=== PATIENT | female | born 1990 | race Caucasian/White ===

== ENCOUNTER 2017-09-12 15:35 | Emergency (ER) | payer MEDICARE, MEDICAID ==
[~2017-09-12] VITALS: Ht 160 cm; Wt 131.5 kg
[2017-09-12] MEDS ORDERED: PREDNISONE 10 M10 MG PO (15:46)
[2017-09-12] MEDS ORDERED: PREDNISONE50 MG PO (16:21)
[2017-09-12] MEDS ORDERED: IBUPROFEN 800800 MG PO (16:21)
[2017-09-12] MEDS ORDERED: PROAIR HFA8.5 GM PO (16:21)
[2017-09-12] MEDS ORDERED: ALBUTEROL2.5 MG/3 M INH (16:53)
[2017-09-12] MEDS ORDERED: NEBULIZER MISCELL (16:53)
[2017-09-12 17:18] VITALS: BP 135/88
--- NOTE | 2017-09-13 19:31 | EKG ---
[place] [address] ELECTROCARDIOGRAM REPORT Name: SALAS KELLY Room: [facility]#: [id number] Admission: 09/12/17 Attend Phys: Discharge: 09/12/17 Date of : [birth year] Report #: [id number] THIS REPORT FOR: //name// [facility] ED Test Date: 2017-09-12 Test Time: 15:42:33 Pat Name: SALAS KELLY Department: Room: Gender: F Progressive Care Unit Registered Nurse: ADAM : 1990 Requested By: Angeli Robertson Order Number: [id number] Laura MD: Bijan Guillory Measurements Intervals [place] Rate: 102 P: 58 [place]: 143 QRS: 11 QRSD: 92 T: 6 QT: 343 QTc: 447 Interpretive Statements Sinus tachycardia Artifact in lead(s) I,II,III,aVR,aVL,aVF,V1 No previous ECG available for comparison Electronically Signed On 09-13-2017 19:31:00 CDT by Bijan Guillory [email or web address] <ELECTRONICALLY SIGNED> By: Bijan Guillory MD, [facility] 09/13/17 193 [id number] 154 Bijan Guillory MD, FACC /EPI
== END 2017-09-12 17:18 | disposition home or self-care (01) ==
LOC: M.ERS 15:35
DX: J45.901 Unspecified asthma with (acute) exacerbation (principal); R07.81 Pleurodynia; Z88.8 Allergy status to other drugs, medicaments and biological substances

== ENCOUNTER 2017-10-06 22:05 | Observation (INO) | payer MEDICARE, MEDICAID ==
[~2017-10-06] VITALS: Ht 160 cm; Wt 139.3 kg
[~2017-10-06 22:05] MED LIST: ALBUTEROL2.5 MG/3 M INH; IBUPROFEN 800800 MG PO; NEBULIZER MISCELL; PREDNISONE 10 M10 MG PO; PREDNISONE50 MG PO; PROAIR HFA8.5 GM PO
[2017-10-06 22:07] VITALS: BP 134/85
[2017-10-06] MEDS ORDERED: LAMICTAL100 MG PO (22:14)
[2017-10-06] MEDS ORDERED: SERTRALINE HCL50 MG PO (22:15)
[2017-10-06] MEDS ORDERED: WELLBUTRIN SR150 MG PO (22:15)
[2017-10-06] MEDS ORDERED: ABILIFY20 MG PO (22:16)
[2017-10-06 22:38] LABS: ABSOLUTE BASOPHILS 0.1 thou/uL (0.0-0.2); ABSOLUTE EOSINOPHILS 0.5 thou/uL (0.0-0.7); ABSOLUTE LYMPHOCYTES 2.4 thou/uL (0.8-5.3); ABSOLUTE NEUTROPHILS 9.5 thou/uL (1.6-8.1); BASOPHILS 0.5 %; HEMATOCRIT 37.2 % (37.0-47.0); HEMOGLOBIN 11.9 gm/dL (12.0-15.0); LYMPHOCYTES 17.7 %; MCH 28.9 pg (26.0-34.0); MCV 90.2 fL (80.0-100.0); MONOCYTES 7.3 %; MPV 7.5 fl. (7.2-11.1); NUCLEATED RBCS 0 /100WBC; PLATELET COUNT* 333 thou/uL (150-400); POLYS 70.5 %; RBC 4.13 mil/uL (4.20-5.00); RDW-CV 15.7 % (10.5-14.5); WBC 13.5 thou/uL (4.0-11.0)
[2017-10-06 22:42] LABS: ANION GAP 6 mmol/L (7-16); BUN 12 mg/dL (7-18); CALCIUM 8.6 mg/dL (8.5-10.1); CHLORIDE 105 mmol/L (98-107); CO2 30 mmol/L (21-32); CREATININE 0.7 mg/dL (0.6-1.3); GLUCOSE 96 mg/dL (70-99); POTASSIUM 3.8 mmol/L (3.5-5.1); SODIUM 141 mmol/L (136-145)
[2017-10-06 22:49] LABS: ALKALINE PHOSPHATASE 70 U/L (46-116); SGOT 13 U/L (15-37); SGPT 20 U/L (30-65); TOTAL BILIRUBIN 0.2 mg/dL (<0.1-1.0); TOTAL PROTEIN 7.2 g/dL (6.4-8.2); TROPONIN-I LEVEL <0.06 ng/mL (<0.06)
[2017-10-06 23:14] LABS: APTT 26.1 Seconds (25.0-31.3); PROTIME 9.4 Seconds (9.20-11.50)
[2017-10-07 00:03] LABS: URINE BILIRUBIN NEGATIVE (Negative); URINE BLOOD NEGATIVE (Negative); URINE CLARITY CLEAR; URINE COLOR YELLOW; URINE GLUCOSE-RANDOM NEGATIVE (Negative); URINE KETONES NEGATIVE (Negative); URINE LEUKOCYTES-REFLEX NEGATIVE (Negative); URINE NITRITE-REFLEX NEGATIVE (Negative); URINE PROTEIN NEGATIVE (Negative); URINE SPECIFIC GRAVITY 1.025 (1.005-1.030); URINE UROBILINOGEN 0.2 E.U./dl (0.2-1.0)
[2017-10-07 00:13] LABS: AMP/METHAMP Negative (Negative); BARBITURATES Negative (Negative); BENZODIAZEPINES Negative (Negative); COCAINE Negative (Negative); METHADONE Negative (Negative); OPIATES Negative (Negative); PCP Negative (Negative); THC Negative (Negative)
[2017-10-07 02:15] VITALS: BP 114/67
[2017-10-07 02:47] VITALS: BP 129/74
[2017-10-07 07:50] VITALS: BP 127/72
--- NOTE | 2017-10-07 11:02 | EKG ---
[place] [address] ELECTROCARDIOGRAM REPORT Name: SALAS KELLY Room: [place] [address] ADM IN [facility].#: [id number] Admission: 10/07/17 Attend Phys: Kamran Forbes MD Discharge: Date of : [birth year] Report #: [id number] THIS REPORT FOR: //name// [facility] ED Test Date: 2017-10-06 Test Time: 22:13:14 Pat Name: SALAS KELLY Department: Room: [facility] Gender: F Engineering Scientist: TITO : 1990 Requested By: Angeli Robertson Order Number: [id number] MD: Kevin Lorenzo Measurements Intervals [place] Rate: 120 P: 67 [place]: 144 QRS: 17 QRSD: 124 T: 3 QT: 304 QTc: 430 Interpretive Statements Sinus tachycardia nonspecific t wave changes Artifact in lead(s) I,II,III,aVR,aVL,aVF,V2,V4,V5,V6 Compared to ECG 09/12/2017 15:42:33 rate increased Electronically Signed On 10-07-2017 11:02:15 CDT by Kevin Lorenzo [email or web address] <ELECTRONICALLY SIGNED> By: Kevin Lorenzo MD, FACC 10/07/17 1102 2213 2213 Kevin Lorenzo MD, FAC /EPI
[2017-10-07] MEDS ORDERED: PREDNISONE 10 M10 MG PO (13:33)
[2017-10-07] MEDS ORDERED: LIDODERM1 EACH TRANSDERM (13:34)
[2017-10-07 14:13] VITALS: BP 127/72
== END 2017-10-07 14:50 | disposition home or self-care (01) ==
LOC: M.ERS 22:05 → M.2W 10-07 01:48 → M.TBA-ER 10-07 01:48 → M.2W 10-07 02:31
PROVIDERS: Personal Emergency Response Attendant; ADMIT Internal Medicine
DX: J45.901 Unspecified asthma with (acute) exacerbation (principal); R07.89 Other chest pain; E66.9 Obesity, unspecified; Z68.43 Body mass index [BMI] 50.0-59.9, adult; F17.210 Nicotine dependence, cigarettes, uncomplicated; Z79.899 Other long term (current) drug therapy

== ENCOUNTER 2017-11-04 13:49 | Inpatient (IN) | payer MEDICARE, MEDICAID ==
[~2017-11-04] VITALS: Ht 162.6 cm; Wt 137.0 kg
[~2017-11-04 13:49] MED LIST changes: +ABILIFY20 MG PO; +LAMICTAL100 MG PO; +LIDODERM1 EACH TRANSDERM; +SERTRALINE HCL50 MG PO; +WELLBUTRIN SR150 MG PO
[2017-11-04 13:57] VITALS: BP 152/103
[2017-11-04 14:36] LABS: ABSOLUTE BASOPHILS 0.1 thou/uL (0.0-0.2); ABSOLUTE EOSINOPHILS 0.5 thou/uL (0.0-0.7); ABSOLUTE LYMPHOCYTES 1.4 thou/uL (0.8-5.3); ABSOLUTE MONOCYTES 0.8 thou/uL (0.0-1.2); ABSOLUTE NEUTROPHILS 6.2 thou/uL (1.6-8.1); EOSINOPHILS 5.9 %; HEMOGLOBIN 12.4 gm/dL (12.0-15.0); LYMPHOCYTES 15.1 %; MCH 29.4 pg (26.0-34.0); MCHC 32.5 g/dL (28.0-37.0); MCV 90.4 fL (80.0-100.0); MONOCYTES 9.4 %; MPV 7.3 fl. (7.2-11.1); NUCLEATED RBCS 0 /100WBC; PLATELET COUNT* 282 thou/uL (150-400); POLYS 68.6 %; RBC 4.21 mil/uL (4.20-5.00); RDW-CV 15.9 % (10.5-14.5); WBC 9.1 thou/uL (4.0-11.0)
[2017-11-04 14:40] LABS: CALCIUM 8.1 mg/dL (8.5-10.1); CREATININE 0.8 mg/dL (0.6-1.3); POTASSIUM 3.6 mmol/L (3.5-5.1)
[2017-11-04 14:46] LABS: TOTAL BILIRUBIN 0.2 mg/dL (<0.1-1.0)
[2017-11-04 18:15] LABS: BE -0.1 mmol/L (-2 to +3); HCO3 24.7 mmol/L (22.0-26.0); PO2 73.4 mmHg (75.0-100.0); pH 7.398 (7.340-7.450)
[2017-11-04 18:42] VITALS: BP 125/76
[2017-11-04 20:00] VITALS: BP 149/81
[2017-11-05 08:10] VITALS: BP 145/97
[2017-11-05 08:16] LABS: URINE BILIRUBIN NEGATIVE (Negative); URINE BLOOD NEGATIVE (Negative); URINE CLARITY CLEAR; URINE COLOR YELLOW; URINE GLUCOSE-RANDOM NEGATIVE (Negative); URINE KETONES NEGATIVE (Negative); URINE LEUKOCYTES-REFLEX NEGATIVE (Negative); URINE NITRITE-REFLEX NEGATIVE (Negative); URINE PROTEIN NEGATIVE (Negative)
[2017-11-05 08:23] LABS: AMP/METHAMP Negative (Negative); BARBITURATES Negative (Negative); BENZODIAZEPINES Negative (Negative); COCAINE Negative (Negative); METHADONE Negative (Negative); OPIATES Negative (Negative); PCP Negative (Negative); THC Negative (Negative)
[2017-11-05 09:28] LABS: HEMATOCRIT 39.5 % (37.0-47.0); HEMOGLOBIN 12.7 gm/dL (12.0-15.0); MCH 28.9 pg (26.0-34.0); MCV 90.2 fL (80.0-100.0); MPV 7.6 fl. (7.2-11.1); NUCLEATED RBCS 0 /100WBC; PLATELET COUNT* 314 thou/uL (150-400); RBC 4.38 mil/uL (4.20-5.00); RDW-CV 15.3 % (10.5-14.5); WBC 9.1 thou/uL (4.0-11.0)
[2017-11-05 09:33] LABS: CALCIUM 8.7 mg/dL (8.5-10.1); CREATININE 0.7 mg/dL (0.6-1.3)
[2017-11-05 09:38] LABS: ALBUMIN 3.1 g/dL (3.4-5.0); MAGNESIUM 1.8 mg/dL (1.8-2.4); PHOSPHORUS* 2.7 mg/dL (2.5-4.9); TOTAL BILIRUBIN 0.3 mg/dL (<0.1-1.0); TOTAL PROTEIN 7.6 g/dL (6.4-8.2)
[2017-11-05 09:53] LABS: ABSOLUTE EOSINOPHILS 0.1 thou/uL (0.0-0.7); ABSOLUTE LYMPHOCYTES 0.2 thou/uL (0.8-5.3); ABSOLUTE NEUTROPHILS 8.8 thou/uL (1.6-8.1); PLATELET ESTIMATE ADEQUATE
--- NOTE | 2017-11-05 10:52 | EKG ---
[place] [address] ELECTROCARDIOGRAM REPORT Name: SALAS KELLY Room: [address] ADM IN [facility]#: [id number] Admission: 11/04/17 Attend Phys: Donald Cheek MD Discharge: Date of : [birth year] Report #: [id number] THIS REPORT FOR: //name// [facility] ED Test Date: 2017-11-04 Test Time: 14:27:35 Pat Name: SALAS KELLY Department: Room: [facility] Gender: Dumper: Nishant PEÑALOZA : 1990 Requested By: Anneliese Osborn Order Number: [id number] MD: Kevin Lorenzo Measurements Intervals [place] Rate: 104 P: 63 [place]: 142 QRS: 25 QRSD: 80 T: 5 QT: 332 QTc: 437 Interpretive Statements Sinus tachycardia Compared to ECG 10/06/2017 22:13:14 T-wave abnormality no longer present Electronically Signed On 11-05-2017 10:52:42 CDT by Kevin Lorenzo [email or web address] <ELECTRONICALLY SIGNED> By: Kevin Lorenzo MD, [facility] 11/05/17 1052 1427 1427 Kevin Lorenzo MD, [facility] /EPI
[2017-11-05 16:47] VITALS: BP 141/89
[2017-11-05 20:00] VITALS: BP 138/92
[2017-11-06 04:56] VITALS: BP 130/79
[2017-11-06 13:06] VITALS: BP 152/94
[2017-11-06 13:45] LABS: ABSOLUTE LYMPHOCYTES 1.5 thou/uL (0.8-5.3); ABSOLUTE MONOCYTES 0.9 thou/uL (0.0-1.2); ABSOLUTE NEUTROPHILS 11.7 thou/uL (1.6-8.1); BASOPHILS 0.3 %; HEMATOCRIT 38.7 % (37.0-47.0); LYMPHOCYTES 10.4 %; MCH 28.3 pg (26.0-34.0); MCV 91.5 fL (80.0-100.0); MONOCYTES 6.2 %; NUCLEATED RBCS 0 /100WBC; PLATELET COUNT* 334 thou/uL (150-400); POLYS 83.1 %; RBC 4.23 mil/uL (4.20-5.00); RDW-CV 15.6 % (10.5-14.5); WBC 14.1 thou/uL (4.0-11.0)
[2017-11-06 13:52] LABS: CALCIUM 8.6 mg/dL (8.5-10.1); CREATININE 0.6 mg/dL (0.6-1.3); POTASSIUM 4.6 mmol/L (3.5-5.1)
[2017-11-06 13:54] LABS: ALBUMIN 3.2 g/dL (3.4-5.0); TOTAL BILIRUBIN 0.1 mg/dL (<0.1-1.0); TOTAL PROTEIN 6.8 g/dL (6.4-8.2)
--- NOTE | 2017-11-06 14:15 | CON ---
[facility] [address] [place] [address] CONSULTATION Name: SALAS KELLY Room: [address] IN [facility]#: [id number] Admission: 11/04/17 Attend Phys: Donald Cheek MD Discharge: Date of : [birth year] Report #: [id number] THIS REPORT FOR: //name// CC: Donald Salas DATE OF SERVICE: 11/05/2017 PULMONARY CONSULTATION REFERRING PHYSICIAN: Donald Cheek M.D. CHIEF COMPLAINT: Asthma. HISTORY OF PRESENT ILLNESS: The patient is a 27-year-old female who has a history of bronchial asthma that she has had since a child. She has not been on very good medical regimen by her history, using only an albuterol inhaler as needed. The patient states she wheezes all the time. It was not until this past Wednesday that she began to have more problems with shortness of breath and wheezing. She has developed some chest tightness and pain as well. She is not coughing up any phlegm at this time. She denies fever, chills, nausea, vomiting or abdominal pain. The patient is living in [place] with her boyfriend. Normally, her place of residence has been in [place], [place]. PAST MEDICAL HISTORY: Significant for bipolar disorder. She has a history of chronic depression. She has a history of asthma. ALLERGIES: COMPAZINE. SOCIAL HISTORY: She lives with her boyfriend. She is a pack-a-day smoker. FAMILY HISTORY: Father of respiratory problems who had a tracheostomy. Mother is alive. She has a sister that is in good health. REVIEW OF SYSTEMS: System review negative other than what is outlined above. MEDICATIONS: On an outpatient basis has been albuterol, Wellbutrin, Zoloft and Lamictal, also Abilify. PHYSICAL EXAMINATION: VITAL SIGNS: Blood pressure 145/97, respiratory rate 20, pulse rate 107, temperature 98.1 degrees. Her weight is 302 pounds. GENERAL APPEARANCE: She is awake, alert, oriented. [place] [address] CONSULTATION Name: SALAS KELLY Room: [address]#: [id number] Admission: 11/04/17 Attend Phys: Donald Cheek MD Discharge: Date of : [birth year] Report #: [id number] respiratory distress at this time. She is not on oxygen therapy at home. HEAD: Atraumatic. EYES: Pupils are round, equal, reactive. Sclerae and conjunctivae clear. ORAL CAVITY: Moist. No lesions. NECK: No adenopathy. CHEST: Scattered wheezes throughout all lung hahn. CARDIOVASCULAR: Regular rhythm. ABDOMEN: Obese. EXTREMITIES: Negative for edema. No evidence of clubbing. SKIN: Warm and dry without rash. LYMPHATICS: Negative. Pulses equal bilaterally. NEUROLOGIC: Moves all 4 extremities. No lateralizing signs. MEDICAL IMAGING STUDIES: Chest x-ray is negative. LABORATORY DATA: Electrolytes reveal sodium 136, potassium 4.0, chloride 99, CO2 of 28, BUN of 10, creatinine 0.7, EGFR of 100. Drug screen is negative. Hemoglobin and hematocrit are 12.7 and 39.5 with a white count of 9100 and 1% eosinophils. Arterial blood gas on 2 liters, pH 7.39, pCO2 of 41, pO2 of 73, bicarbonate 25 on 2 liters. ASSESSMENT: 1. Exacerbation of bronchial asthma. 2. Bipolar disease. 3. Obesity. RECOMMENDATION: The patient will need to be placed on a better maintenance therapy while as an outpatient. Hopefully, this will better control her asthma condition. In addition, she will need to discontinue smoking. This was emphasized during the evaluation. She will need to have a nebulizer at home. We will continue with the current medical regimen. She is on steroids. We will add budesonide and formoterol as well as Singulair. IgE level will be obtained as well. <ELECTRONICALLY SIGNED> By: Lux Chau MD 11/06/17 1415 1133 1838Allinus Chau MD /nt
[2017-11-06 16:00] VITALS: BP 138/83
[2017-11-06 19:40] VITALS: BP 133/81
[2017-11-07 08:41] VITALS: BP 134/72
[2017-11-07 16:33] VITALS: BP 128/73
--- NOTE | 2017-11-07 17:06 | EKG ---
[place] [address] ELECTROCARDIOGRAM REPORT Name: SALAS KELLY Room: [address] ADM IN [facility].#: [id number] Admission: 11/04/17 Attend Phys: Donald Cheek MD Discharge: Date of : [birth year] Report #: [id number] THIS REPORT FOR: //name// [facility] Test Date: 2017-11-07 Test Time: 10:19:33 Pat Name: SALAS KELLY Department: Room: [address] Gender: F Product Representative: : 1990 Requested By: Micheal May Order Number: [id number] Laura MD: Bijan Guillory Measurements Intervals [place] Rate: 98 P: 48 PA: 129 QRS: 9 QRSD: 81 T: 3 QT: 356 QTc: 455 Interpretive Statements Sinus rhythm Compared to ECG 11/04/2017 14:27:35 Sinus tachycardia no longer present Electronically Signed On 11-07-2017 17:05:55 CDT by Bijan Guillory [email or web address] <ELECTRONICALLY SIGNED> By: Bijan Guillory MD, [facility] 11/07/17 1705 1019 1019 Bijan Guillory MD, FACC /EPI
[2017-11-07 19:40] VITALS: BP 130/87
[2017-11-08 05:00] LABS: HEMATOCRIT 37.7 % (37.0-47.0); HEMOGLOBIN 11.9 gm/dL (12.0-15.0); MCH 28.8 pg (26.0-34.0); MCHC 31.6 g/dL (28.0-37.0); MCV 91.1 fL (80.0-100.0); MPV 7.8 fl. (7.2-11.1); RBC 4.13 mil/uL (4.20-5.00); RDW-CV 15.3 % (10.5-14.5); WBC 15.9 thou/uL (4.0-11.0)
[2017-11-08 06:02] LABS: ALBUMIN 3.1 g/dL (3.4-5.0); CALCIUM 8.2 mg/dL (8.5-10.1); CREATININE 0.8 mg/dL (0.6-1.3); POTASSIUM 4.1 mmol/L (3.5-5.1); TOTAL BILIRUBIN 0.1 mg/dL (<0.1-1.0); TOTAL PROTEIN 6.5 g/dL (6.4-8.2)
[2017-11-08] MEDS ORDERED: SINGULAIR 10 MG10 M1 PO (08:08)
[2017-11-08] MEDS ORDERED: LEVAQUIN 750 M750 MG PO (08:08)
[2017-11-08] MEDS ORDERED: ADVAIR HFA 230M12 GM INH (08:08)
[2017-11-08] MEDS ORDERED: PREDNISONE 10 M10 M1 PO (08:08)
[2017-11-08 08:15] VITALS: BP 153/93
[2017-11-08 13:09] VITALS: BP 153/93
[2017-11-08 14:05] VITALS: BP 153/93
== END 2017-11-08 14:25 | disposition home or self-care (01) | DRG 189 ==
LOC: M.ERS → M.ORTHSURG 16:26 → M.TBA-ER 16:26 → M.ORTHSURG 18:50
PROVIDERS: Family Medicine; Nurse Practitioner Family; ADMIT Internal Medicine
DX: J96.01 Acute respiratory failure with hypoxia (principal); J45.51 Severe persistent asthma with (acute) exacerbation; R65.10 Systemic inflammatory response syndrome (SIRS) of non-infectious origin without acute organ dysfunction; Z68.43 Body mass index [BMI] 50.0-59.9, adult; F31.9 Bipolar disorder, unspecified; F17.210 Nicotine dependence, cigarettes, uncomplicated; E66.01 Morbid (severe) obesity due to excess calories; T38.0X5A Adverse effect of glucocorticoids and synthetic analogues, initial encounter; K75.81 Nonalcoholic steatohepatitis (NASH); R91.1 Solitary pulmonary nodule; Z88.8 Allergy status to other drugs, medicaments and biological substances; Z88.6 Allergy status to analgesic agent; Z82.5 Family history of asthma and other chronic lower respiratory diseases; Z65.8 Other specified problems related to psychosocial circumstances; Z79.899 Other long term (current) drug therapy

== ENCOUNTER 2017-11-21 15:48 | Emergency (ER) | payer MEDICARE, MEDICAID ==
[~2017-11-21] VITALS: Ht 165.1 cm; Wt 113.4 kg
[~2017-11-21 15:48] MED LIST changes: +ADVAIR HFA 230M12 GM INH; +LEVAQUIN 750 M750 MG PO; +PREDNISONE 10 M10 M1 PO; +SINGULAIR 10 MG10 M1 PO
[2017-11-21 16:15] LABS: ABSOLUTE BASOPHILS 0.1 thou/uL (0.0-0.2); ABSOLUTE EOSINOPHILS 0.3 thou/uL (0.0-0.7); ABSOLUTE LYMPHOCYTES 1.6 thou/uL (0.8-5.3); ABSOLUTE MONOCYTES 0.6 thou/uL (0.0-1.2); ABSOLUTE NEUTROPHILS 7.1 thou/uL (1.6-8.1); BASOPHILS 1.3 %; HEMATOCRIT 37.5 % (37.0-47.0); HEMOGLOBIN 12.2 gm/dL (12.0-15.0); LYMPHOCYTES 16.4 %; MCH 29.2 pg (26.0-34.0); MCHC 32.5 g/dL (28.0-37.0); MONOCYTES 6.3 %; MPV 7.2 fl. (7.2-11.1); NUCLEATED RBCS 0 /100WBC; PLATELET COUNT* 270 thou/uL (150-400); RBC 4.17 mil/uL (4.20-5.00); RDW-CV 14.8 % (10.5-14.5); WBC 9.7 thou/uL (4.0-11.0)
[2017-11-21 16:29] LABS: ANION GAP 5 mmol/L (7-16); BUN 10 mg/dL (7-18); CALCIUM 8.1 mg/dL (8.5-10.1); CHLORIDE 105 mmol/L (98-107); CO2 31 mmol/L (21-32); CREATININE 0.6 mg/dL (0.6-1.3); GLUCOSE 120 mg/dL (70-99); POTASSIUM 3.6 mmol/L (3.5-5.1); SODIUM 141 mmol/L (136-145)
[2017-11-21 16:33] LABS: ALKALINE PHOSPHATASE 66 U/L (46-116); LIPASE 120 U/L (73-393); MAGNESIUM 1.7 mg/dL (1.8-2.4); NT-PRO BRAIN NAT PEPTIDE 58 pg/mL (<300); SGOT 7 U/L (15-37); SGPT 18 U/L (30-65); TOTAL BILIRUBIN 0.3 mg/dL (<0.1-1.0); TROPONIN-I LEVEL <0.06 ng/mL (<0.06)
[2017-11-21 20:25] VITALS: BP 127/72
--- NOTE | 2017-11-22 16:08 | EKG ---
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: MS : 1990 Requested By: Bacilio Ferreira Order Number: [id number] MD: Rhett Lau Measurements Intervals [place] Rate: 118 P: 51 [place]: 143 QRS: 11 QRSD: 78 T: 2 QT: 330 QTc: 463 Interpretive Statements Sinus tachycardia Borderline T abnormalities, inferior leads Baseline wander in lead(s) I,II,aVR,aVL,V1,V2,V3,V4,V5,V6 Compared to ECG 11/07/2017 10:19:33 T-wave abnormality now present Sinus rate has increased Electronically Signed On 11-22-2017 16:08:24 CDT by Rhett Lau [email or web address] <ELECTRONICALLY SIGNED> By: Rhett Lau MD, FACC 11/22/17 1608 1559 1559 Rhett Lau MD, FAC /EPI
--- NOTE | 2017-11-22 16:11 | EKG ---
[place] [address] ELECTROCARDIOGRAM REPORT Name: SALAS KELLY Room: [facility]#: [id number] Admission: 11/21/17 Attend Phys: Discharge: 11/21/17 Date of : [birth year] Report #: [id number] THIS REPORT FOR: //name// [facility] ED Test Date: 2017-11-21 Test Time: 18:12:33 Pat Name: SALAS KELLY Department: Room: Gender: F Master Deputy [address] Security: ADAM : 1990 Requested By: Bacilio Ferreira Order Number: [id number] MD: Rhett Lau Measurements Intervals [place] Rate: 103 P: 51 [place]: 139 QRS: 19 QRSD: 79 T: 8 QT: 342 QTc: 448 Interpretive Statements Sinus tachycardia Probable left atrial enlargement Compared to ECG 11/07/2017 10:19:33 Sinus rate has decreased Electronically Signed On 11-22-2017 16:11:27 CDT by Rhett Lau [email or web address] <ELECTRONICALLY SIGNED> By: Rhett Lau MD, [facility] 11/22/17 1611 D: 09/1811 11 Rhett Lau MD, FACC /EPI
== END 2017-11-21 23:07 | disposition home or self-care (01) ==
LOC: M.ERS 15:48
PROVIDERS: Emergency Medicine Emergency Medical Services
DX: J06.9 Acute upper respiratory infection, unspecified (principal); R06.02 Shortness of breath; R07.9 Chest pain, unspecified; J45.50 Severe persistent asthma, uncomplicated; E66.01 Morbid (severe) obesity due to excess calories; Z88.8 Allergy status to other drugs, medicaments and biological substances; Z68.41 Body mass index [BMI] 40.0-44.9, adult; Z88.5 Allergy status to narcotic agent

== ENCOUNTER 2017-12-15 13:38 | Emergency (ER) | payer MEDICARE, MEDICAID ==
[~2017-12-15] VITALS: Ht 162.6 cm; Wt 137.0 kg
[2017-12-15] MEDS ORDERED: PREDNISONE50 MG PO (15:06)
[2017-12-15] MEDS ORDERED: VENTOLIN HFA 1818 GM INH (15:06)
[2017-12-15 15:15] VITALS: BP 164/75
--- NOTE | 2017-12-15 17:04 | EKG ---
[place] [address] ELECTROCARDIOGRAM REPORT Name: SALAS KELLY Room: [facility]#: [id number] Admission: 12/15/17 Attend Phys: Discharge: 12/15/17 Date of : [birth year] Report #: [id number] THIS REPORT FOR: //name// [facility] ED Test Date: 2017-12-15 Test Time: 13:49:52 Pat Name: SALAS KELLY Department: Room: Gender: F Local Sales Associate: Nishant BARNETT : 1990 Requested By: Dwight Nichols Order Number: [id number] Laura MD: Kevin Lorenzo Measurements Intervals [place] Rate: 106 P: 51 [place]: 138 QRS: 18 QRSD: 102 T: 1 QT: 327 QTc: 435 Interpretive Statements Sinus tachycardia Low voltage, precordial leads Borderline T abnormalities, inferior leads Compared to ECG 11/21/2017 18:12:33 Low QRS voltage now present Electronically Signed On 12-15-2017 17:04:14 CDT by Kevin Lorenzo [email or web address] <ELECTRONICALLY SIGNED> By: Kevin Lorenzo MD, [facility] 12/15/17 1704 1349 1349 Kevin Lorenzo MD, [facility] /EPI
== END 2017-12-15 15:16 | disposition home or self-care (01) ==
LOC: M.ERS 13:38
DX: J45.909 Unspecified asthma, uncomplicated (principal); F32.9 Major depressive disorder, single episode, unspecified; E66.01 Morbid (severe) obesity due to excess calories; Z68.43 Body mass index [BMI] 50.0-59.9, adult; Z88.8 Allergy status to other drugs, medicaments and biological substances; Z88.5 Allergy status to narcotic agent

== ENCOUNTER 2017-12-25 16:24 | Emergency (ER) | payer MEDICARE, MEDICAID ==
[~2017-12-25] VITALS: Ht 160 cm; Wt 137.0 kg
[~2017-12-25 16:24] MED LIST changes: +VENTOLIN HFA 1818 GM INH
[2017-12-25] MEDS ORDERED: SERTRALINE HCL50 MG PO (16:31)
[2017-12-25] MEDS ORDERED: LAMICTAL200 MG PO (16:32)
[2017-12-25] MEDS ORDERED: ABILIFY15 MG PO (16:32)
[2017-12-25] MEDS ORDERED: WELLBUTRIN SR150 MG PO (16:32)
[2017-12-25 17:55] LABS: ABSOLUTE BASOPHILS 0.1 thou/uL (0.0-0.2); ABSOLUTE EOSINOPHILS 0.5 thou/uL (0.0-0.7); ABSOLUTE LYMPHOCYTES 1.8 thou/uL (0.8-5.3); ABSOLUTE MONOCYTES 0.7 thou/uL (0.0-1.2); ABSOLUTE NEUTROPHILS 6.6 thou/uL (1.6-8.1); BASOPHILS 0.7 %; EOSINOPHILS 5.4 %; HEMATOCRIT 37.6 % (37.0-47.0); HEMOGLOBIN 12.1 gm/dL (12.0-15.0); LYMPHOCYTES 18.2 %; MCH 28.5 pg (26.0-34.0); MCHC 32.1 g/dL (28.0-37.0); MCV 88.8 fL (80.0-100.0); MONOCYTES 7.1 %; MPV 7.3 fl. (7.2-11.1); NUCLEATED RBCS 0 /100WBC; PLATELET COUNT* 322 thou/uL (150-400); POLYS 68.6 %; RBC 4.24 mil/uL (4.20-5.00); RDW-CV 14.8 % (10.5-14.5); WBC 9.7 thou/uL (4.0-11.0)
[2017-12-25 17:59] LABS: CALCIUM 8.7 mg/dL (8.5-10.1); CREATININE 0.7 mg/dL (0.6-1.3); POTASSIUM 3.6 mmol/L (3.5-5.1)
[2017-12-25 18:04] LABS: ALBUMIN 3.2 g/dL (3.4-5.0); TOTAL BILIRUBIN 0.2 mg/dL (<0.1-1.0); TOTAL PROTEIN 7.1 g/dL (6.4-8.2)
[2017-12-25 18:15] LABS: AMP/METHAMP Negative (Negative); BARBITURATES Negative (Negative); BENZODIAZEPINES Negative (Negative); COCAINE Negative (Negative); METHADONE Negative (Negative); OPIATES POSITIVE (Negative); PCP Negative (Negative); THC Negative (Negative)
[2017-12-25] MEDS ORDERED: PREDNISONE 20 M20 MG PO (19:31)
[2017-12-25] MEDS ORDERED: ALBUTEROL2.5 MG/31 INH (20:14)
[2017-12-25 20:23] VITALS: BP 141/85
--- NOTE | 2017-12-27 11:28 | EKG ---
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: BRIDGET : 1990 Requested By: Angeli Franklin Order Number: [id number] Laura MD: Kevin Lorenzo Measurements Intervals [place] Rate: 112 P: 61 [place]: 148 QRS: 26 QRSD: 78 T: 5 QT: 331 QTc: 452 Interpretive Statements Sinus tachycardia Probable left atrial enlargement Artifact in lead(s) I,II,III,aVR,aVL,aVF,V1 Compared to ECG 12/15/2017 13:49:52 T-wave abnormality no longer present Electronically Signed On 12-27-2017 11:28:46 FARM MANAGEMENT ADVISER by Kevin Lorenzo [email or web address] <ELECTRONICALLY SIGNED> By: Kevin Lorenzo MD, FACC 12/27/17 1128 1527 1527 Kevin Lorenzo MD, [facility] /EPI
== END 2017-12-25 20:24 | disposition home or self-care (01) ==
LOC: M.ERS 16:24
PROVIDERS: Physician Assistant
DX: J45.901 Unspecified asthma with (acute) exacerbation (principal); F32.9 Major depressive disorder, single episode, unspecified; E66.01 Morbid (severe) obesity due to excess calories; Z68.43 Body mass index [BMI] 50.0-59.9, adult; Z88.8 Allergy status to other drugs, medicaments and biological substances

== ENCOUNTER 2018-01-31 17:58 | Emergency (ER) | payer MEDICARE, MEDICAID ==
[~2018-01-31] VITALS: Ht 160 cm; Wt 133.8 kg
[~2018-01-31 17:58] MED LIST changes: +ABILIFY15 MG PO; +ALBUTEROL2.5 MG/31 INH; +LAMICTAL200 MG PO; +PREDNISONE 20 M20 MG PO
[2018-01-31 18:38] LABS: ABSOLUTE BASOPHILS 0.1 thou/uL (0.0-0.2); ABSOLUTE EOSINOPHILS 0.2 thou/uL (0.0-0.7); ABSOLUTE LYMPHOCYTES 1.5 thou/uL (0.8-5.3); ABSOLUTE MONOCYTES 0.9 thou/uL (0.0-1.2); ABSOLUTE NEUTROPHILS 9.2 thou/uL (1.6-8.1); BASOPHILS 0.9 %; HEMATOCRIT 39.7 % (37.0-47.0); HEMOGLOBIN 12.7 gm/dL (12.0-15.0); LYMPHOCYTES 12.6 %; MCH 28.3 pg (26.0-34.0); MCV 88.3 fL (80.0-100.0); MONOCYTES 7.6 %; MPV 7.5 fl. (7.2-11.1); NUCLEATED RBCS 0 /100WBC; PLATELET COUNT* 341 thou/uL (150-400); POLYS 76.9 %; RBC 4.49 mil/uL (4.20-5.00); RDW-CV 14.8 % (10.5-14.5); WBC 11.9 thou/uL (4.0-11.0)
[2018-01-31 18:44] LABS: ANION GAP 8 mmol/L (7-16); BUN 12 mg/dL (7-18); CALCIUM 8.9 mg/dL (8.5-10.1); CHLORIDE 101 mmol/L (98-107); CO2 27 mmol/L (21-32); CREATININE 0.8 mg/dL (0.6-1.3); GLUCOSE 87 mg/dL (70-99); SODIUM 136 mmol/L (136-145)
[2018-01-31 18:54] LABS: ALBUMIN 3.4 g/dL (3.4-5.0); ALKALINE PHOSPHATASE 73 U/L (46-116); LIPASE 108 U/L (73-393); MAGNESIUM 1.7 mg/dL (1.8-2.4); NT-PRO BRAIN NAT PEPTIDE 68 pg/mL (<300); SGOT 16 U/L (15-37); SGPT 18 U/L (30-65); TOTAL BILIRUBIN 0.3 mg/dL (<0.1-1.0); TOTAL PROTEIN 7.9 g/dL (6.4-8.2); TROPONIN-I LEVEL <0.06 ng/mL (<0.06)
[2018-01-31 20:50] VITALS: BP 109/71
--- NOTE | 2018-02-01 11:34 | EKG ---
[place] [address] ELECTROCARDIOGRAM REPORT Name: SALAS KELLY Room: [facility]#: [id number] Admission: 01/31/18 Attend Phys: Discharge: 01/31/18 Date of : [birth year] Report #: [id number] THIS REPORT FOR: //name// [facility] ED Test Date: 2018-01-31 Test Time: 18:05:50 Pat Name: SALAS MONTAGUEISIDRA Department: Room: Gender: F Public Health Epidemiologist: SHAUNA : 1990 Requested By: Bacilio Ferreira Order Number: [id number] MD: Ha Cast Measurements Intervals [place] Rate: 93 P: 42 [place]: 145 QRS: 12 QRSD: 82 T: 7 QT: 355 QTc: 442 Interpretive Statements Sinus rhythm Compared to ECG 12/25/2017 15:27:38 Sinus tachycardia no longer present Electronically Signed On 02-01-2018 11:34:35 ROCK CRUSHER by Ha Cast [email or web address] <ELECTRONICALLY SIGNED> By: Ha Cast MD, [facility] 02/01/18 1134 04 04 Ha Cast MD, [facility] /EPI
== END 2018-01-31 20:50 | disposition home or self-care (01) ==
LOC: M.ERS 17:58
PROVIDERS: Emergency Medicine Emergency Medical Services
DX: R07.89 Other chest pain (principal); R11.2 Nausea with vomiting, unspecified; E66.01 Morbid (severe) obesity due to excess calories; F31.9 Bipolar disorder, unspecified; F17.210 Nicotine dependence, cigarettes, uncomplicated; Z88.8 Allergy status to other drugs, medicaments and biological substances; Z68.43 Body mass index [BMI] 50.0-59.9, adult

== ENCOUNTER 2018-02-08 14:15 | Emergency (ER) | payer MEDICARE, MEDICAID ==
[~2018-02-08] VITALS: Ht 162.6 cm; Wt 133.8 kg
[2018-02-08] MEDS ORDERED: PREDNISONE50 MG PO (17:09)
[2018-02-08 17:31] VITALS: BP 119/65
== END 2018-02-08 17:32 | disposition home or self-care (01) ==
LOC: M.ERS 14:15
DX: J45.901 Unspecified asthma with (acute) exacerbation (principal); F31.9 Bipolar disorder, unspecified; E66.01 Morbid (severe) obesity due to excess calories; F17.210 Nicotine dependence, cigarettes, uncomplicated; Z68.43 Body mass index [BMI] 50.0-59.9, adult; Z88.8 Allergy status to other drugs, medicaments and biological substances

== ENCOUNTER 2018-02-22 17:59 | Emergency (ER) | payer MEDICARE, MEDICAID ==
[~2018-02-22] VITALS: Ht 162.6 cm; Wt 133.8 kg
[2018-02-22] MEDS ORDERED: ALBUTEROL2.5 MG/31 INH (19:10)
[2018-02-22] MEDS ORDERED: ZPAK PO (19:10)
[2018-02-22] MEDS ORDERED: PREDNISONE 20 M20 MG PO (19:10)
[2018-02-22 19:20] VITALS: BP 154/90
[2018-02-24] MEDS ORDERED: PREDNISONE 20 M20 MG (19:01)
== END 2018-02-22 19:23 | disposition home or self-care (01) ==
LOC: M.ERS 17:59
DX: J45.901 Unspecified asthma with (acute) exacerbation (principal); E66.01 Morbid (severe) obesity due to excess calories; F31.9 Bipolar disorder, unspecified; F17.210 Nicotine dependence, cigarettes, uncomplicated; Z68.43 Body mass index [BMI] 50.0-59.9, adult; Z88.8 Allergy status to other drugs, medicaments and biological substances

== ENCOUNTER 2018-02-24 18:35 | Inpatient (IN) | payer MEDICARE, MEDICAID ==
[~2018-02-24] VITALS: Ht 162.6 cm; Wt 135.6 kg
[~2018-02-24 18:35] MED LIST changes: +ZPAK PO
[2018-02-24 18:56] VITALS: BP 164/98
[2018-02-24] MEDS ORDERED: PREDNISONE 10 M10 MG PO (19:01)
[2018-02-24 20:06] LABS: ABSOLUTE BASOPHILS 0.1 thou/uL (0.0-0.2); ABSOLUTE LYMPHOCYTES 1.7 thou/uL (0.8-5.3); ABSOLUTE MONOCYTES 1.8 thou/uL (0.0-1.2); ABSOLUTE NEUTROPHILS 11.7 thou/uL (1.6-8.1); BASOPHILS 0.4 %; HEMATOCRIT 37.7 % (37.0-47.0); HEMOGLOBIN 12.2 gm/dL (12.0-15.0); LYMPHOCYTES 10.8 %; MCH 28.6 pg (26.0-34.0); MCHC 32.4 g/dL (28.0-37.0); MCV 88.1 fL (80.0-100.0); MPV 7.1 fl. (7.2-11.1); NUCLEATED RBCS 0 /100WBC; PLATELET COUNT* 329 thou/uL (150-400); POLYS 76.8 %; RBC 4.28 mil/uL (4.20-5.00); RDW-CV 15.2 % (10.5-14.5); WBC 15.3 thou/uL (4.0-11.0)
[2018-02-24 20:14] LABS: CALCIUM 8.8 mg/dL (8.5-10.1); CREATININE 0.7 mg/dL (0.6-1.3); POTASSIUM 3.8 mmol/L (3.5-5.1)
[2018-02-24 20:19] LABS: ALBUMIN 3.1 g/dL (3.4-5.0); TOTAL BILIRUBIN 0.2 mg/dL (<0.1-1.0); TOTAL PROTEIN 7.3 g/dL (6.4-8.2)
[2018-02-24 21:41] LABS: INFLUENZA A ANTIGEN None Detected (None Detect); INFLUENZA B ANTIGEN None Detected (None Detect)
[2018-02-24 22:19] VITALS: BP 121/75
[2018-02-24 22:45] VITALS: BP 127/78
[2018-02-25 04:00] VITALS: BP 133/83
[2018-02-25 10:36] VITALS: BP 144/87
[2018-02-25 12:39] VITALS: BP 130/68
[2018-02-25 16:45] VITALS: BP 136/84
[2018-02-25] MEDS ORDERED: BENZTROPINE PO (18:16)
[2018-02-25 19:02] LABS: AMP/METHAMP Negative (Negative); BARBITURATES Negative (Negative); BENZODIAZEPINES Negative (Negative); COCAINE Negative (Negative); METHADONE Negative (Negative); OPIATES Negative (Negative); PCP Negative (Negative); THC Negative (Negative)
[2018-02-25 20:47] VITALS: BP 125/78
[2018-02-26] VITALS: BP 139/92
[2018-02-26 04:00] VITALS: BP 133/82
[2018-02-26 05:16] LABS: HEMATOCRIT 37.4 % (37.0-47.0); HEMOGLOBIN 11.9 gm/dL (12.0-15.0); MCH 28.6 pg (26.0-34.0); MCHC 31.9 g/dL (28.0-37.0); MCV 89.4 fL (80.0-100.0); MPV 7.7 fl. (7.2-11.1); NUCLEATED RBCS 0 /100WBC; PLATELET COUNT* 293 thou/uL (150-400); RBC 4.18 mil/uL (4.20-5.00); WBC 9.7 thou/uL (4.0-11.0)
[2018-02-26 05:51] LABS: CALCIUM 8.5 mg/dL (8.5-10.1); CREATININE 0.7 mg/dL (0.6-1.3); POTASSIUM 4.2 mmol/L (3.5-5.1)
[2018-02-26 08:00] VITALS: BP 148/88
[2018-02-26 10:35] LABS: ABSOLUTE LYMPHOCYTES 0.5 thou/uL (0.8-5.3); ABSOLUTE MONOCYTES 0.5 thou/uL (0.0-1.2); ABSOLUTE NEUTROPHILS 8.7 thou/uL (1.6-8.1)
[2018-02-26 10:36] LABS: HYPOCHROMASIA Occasional; PLATELET ESTIMATE ADEQUATE
[2018-02-26 12:21] VITALS: BP 134/75
[2018-02-26 16:05] VITALS: BP 158/84
[2018-02-26 20:10] VITALS: BP 137/81
[2018-02-27] VITALS: BP 160/83
[2018-02-27 04:00] VITALS: BP 160/80
[2018-02-27 05:28] LABS: ABSOLUTE LYMPHOCYTES 1.1 thou/uL (0.8-5.3); ABSOLUTE MONOCYTES 0.8 thou/uL (0.0-1.2); ABSOLUTE NEUTROPHILS 10.7 thou/uL (1.6-8.1); BASOPHILS 0.1 %; HEMATOCRIT 37.5 % (37.0-47.0); LYMPHOCYTES 8.5 %; MCH 28.7 pg (26.0-34.0); MCHC 32.1 g/dL (28.0-37.0); MCV 89.5 fL (80.0-100.0); MONOCYTES 6.7 %; MPV 7.8 fl. (7.2-11.1); NUCLEATED RBCS 0 /100WBC; PLATELET COUNT* 281 thou/uL (150-400); POLYS 84.7 %; RBC 4.19 mil/uL (4.20-5.00); RDW-CV 15.5 % (10.5-14.5); WBC 12.6 thou/uL (4.0-11.0)
[2018-02-27 06:17] LABS: CALCIUM 8.5 mg/dL (8.5-10.1); CREATININE 0.7 mg/dL (0.6-1.3); POTASSIUM 3.9 mmol/L (3.5-5.1); TOTAL BILIRUBIN 0.2 mg/dL (<0.1-1.0); TOTAL PROTEIN 6.6 g/dL (6.4-8.2)
[2018-02-27 08:09] VITALS: BP 128/82
[2018-02-27 12:00] VITALS: BP 157/88
[2018-02-27 16:00] VITALS: BP 153/86
[2018-02-27 20:30] VITALS: BP 154/91
[2018-02-28 00:21] VITALS: BP 136/87
[2018-02-28 04:02] VITALS: BP 142/90
[2018-02-28 08:09] VITALS: BP 149/88
[2018-02-28] MEDS ORDERED: PROTONIX40 M1 PO (10:11)
[2018-02-28] MEDS ORDERED: SINGULAIR 10 MG10 M1 PO (10:12)
[2018-02-28] MEDS ORDERED: AUGMENTIN 875-1 EACH PO (10:12)
[2018-02-28 10:19] VITALS: BP 149/88
== END 2018-02-28 10:58 | disposition home or self-care (01) | DRG 177 ==
LOC: M.ERS 18:35 → M.2W 22:08 → M.TBA-ER 22:08 → M.2W 22:12
PROVIDERS: Emergency Medicine; Internal Medicine; ADMIT Internal Medicine
DX: J15.6 Pneumonia due to other Gram-negative bacteria (principal); J96.01 Acute respiratory failure with hypoxia; R65.11 Systemic inflammatory response syndrome (SIRS) of non-infectious origin with acute organ dysfunction; Z68.43 Body mass index [BMI] 50.0-59.9, adult; J45.51 Severe persistent asthma with (acute) exacerbation; J20.9 Acute bronchitis, unspecified; R10.9 Unspecified abdominal pain; F31.9 Bipolar disorder, unspecified; F41.9 Anxiety disorder, unspecified; E66.01 Morbid (severe) obesity due to excess calories; F17.210 Nicotine dependence, cigarettes, uncomplicated; Z79.51 Long term (current) use of inhaled steroids; Z79.899 Other long term (current) drug therapy; Z88.8 Allergy status to other drugs, medicaments and biological substances; Z82.5 Family history of asthma and other chronic lower respiratory diseases

== ENCOUNTER 2018-03-04 20:54 | Emergency (ER) | payer MEDICARE, MEDICAID ==
[~2018-03-04] VITALS: Ht 160 cm; Wt 133.8 kg
[~2018-03-04 20:54] MED LIST changes: +AUGMENTIN 875-1 EACH PO; +BENZTROPINE PO; +PROTONIX40 M1 PO
[2018-03-04] MEDS ORDERED: KEFLEX500 M1 PO ×2 (21:15→21:19)
[2018-03-04 21:35] VITALS: BP 138/74
== END 2018-03-04 21:35 | disposition home or self-care (01) ==
LOC: M.ERS 20:54
DX: L05.91 Pilonidal cyst without abscess (principal); E66.01 Morbid (severe) obesity due to excess calories; Z68.43 Body mass index [BMI] 50.0-59.9, adult; F31.9 Bipolar disorder, unspecified; F41.9 Anxiety disorder, unspecified; J45.50 Severe persistent asthma, uncomplicated; F17.210 Nicotine dependence, cigarettes, uncomplicated; Z88.8 Allergy status to other drugs, medicaments and biological substances

== ENCOUNTER 2018-03-21 22:43 | Emergency (ER) | payer MEDICARE, MEDICAID ==
[~2018-03-21] VITALS: Ht 162.6 cm; Wt 136.5 kg
[~2018-03-21 22:43] MED LIST changes: +KEFLEX500 M1 PO
[2018-03-22] MEDS ORDERED: PREDNISONE50 MG PO (02:15)
[2018-03-22] MEDS ORDERED: ALBUTEROL2.5 MG/31 INH (02:15)
[2018-03-22] MEDS ORDERED: PROAIR HFA8.5 GM INH (02:15)
[2018-03-22 02:55] VITALS: BP 124/82
== END 2018-03-22 02:57 | disposition home or self-care (01) ==
LOC: M.ERS 22:43
DX: J45.901 Unspecified asthma with (acute) exacerbation (principal); F31.9 Bipolar disorder, unspecified; F41.9 Anxiety disorder, unspecified; E66.01 Morbid (severe) obesity due to excess calories; F17.210 Nicotine dependence, cigarettes, uncomplicated; Z88.8 Allergy status to other drugs, medicaments and biological substances; Z68.43 Body mass index [BMI] 50.0-59.9, adult

== ENCOUNTER 2018-04-21 20:18 | Emergency (ER) | payer MEDICARE, MEDICAID ==
[~2018-04-21] VITALS: Ht 162.6 cm; Wt 133.8 kg
[~2018-04-21 20:18] MED LIST changes: +PROAIR HFA8.5 GM INH
[2018-04-21] MEDS ORDERED: MEDROLDOSEPACK PO ×2 (23:33)
[2018-04-21] MEDS ORDERED: QVAR REDIHALE10.6 G1 PO (23:33)
[2018-04-21 23:59] VITALS: BP 133/85
== END 2018-04-21 23:59 | disposition home or self-care (01) ==
LOC: M.ERS 20:18
DX: R06.02 Shortness of breath (principal); F31.9 Bipolar disorder, unspecified; F41.9 Anxiety disorder, unspecified; E66.01 Morbid (severe) obesity due to excess calories; Z68.43 Body mass index [BMI] 50.0-59.9, adult; Z90.49 Acquired absence of other specified parts of digestive tract; J45.50 Severe persistent asthma, uncomplicated; Z88.8 Allergy status to other drugs, medicaments and biological substances

== ENCOUNTER 2018-04-22 19:28 | Inpatient (IN) | payer MEDICARE, MEDICAID ==
[~2018-04-22] VITALS: Ht 162.6 cm; Wt 139.7 kg
[~2018-04-22 19:28] MED LIST changes: +MEDROLDOSEPACK PO; +QVAR REDIHALE10.6 G1 PO
[2018-04-22 20:03] VITALS: BP 155/109
--- NOTE | 2018-04-22 20:19 | NUR ---
PT PRESENTS TO ED WITH SHORTNESS OF AIR SINCE 1800.
--- NOTE | 2018-04-22 20:21 | NUR ---
PT REPORTS USING HOME NEBULIZER AT 0900. PROVIDER WITH PT AT THIS TIME.
--- NOTE | 2018-04-22 20:31 | NUR ---
PT GIVEN IM DEXAMTHAZONE. BREATHING TREATMENT ORDERED.
[2018-04-22 21:57] LABS: HEMOGLOBIN 12.1 gm/dL (12.0-15.0); MCH 27.9 pg (26.0-34.0); MCHC 31.9 g/dL (28.0-37.0); MCV 87.6 fL (80.0-100.0); MPV 7.5 fl. (7.2-11.1); NUCLEATED RBCS 0 /100WBC; PLATELET COUNT* 362 thou/uL (150-400); RBC 4.34 mil/uL (4.20-5.00); RDW-CV 15.1 % (10.5-14.5); WBC 20.7 thou/uL (4.0-11.0)
[2018-04-22 22:06] LABS: ALBUMIN 3.2 g/dL (3.4-5.0); CREATININE 0.8 mg/dL (0.6-1.3); POTASSIUM 3.4 mmol/L (3.5-5.1); TOTAL BILIRUBIN 0.2 mg/dL (<0.1-1.0); TOTAL PROTEIN 7.5 g/dL (6.4-8.2)
[2018-04-22 22:16] LABS: ABSOLUTE LYMPHOCYTES 2.3 thou/uL (0.8-5.3); ABSOLUTE MONOCYTES 0.4 thou/uL (0.0-1.2); PLATELET ESTIMATE ADEQUATE
--- NOTE | 2018-04-22 22:33 | NUR ---
RECIEVED ORDERS FOR ADMISSION. REPORT GIVEN TO PHIL RAMOS. PT BEING ADMITTED TO ROOM 209.
[2018-04-22 22:34] VITALS: BP 122/81
[2018-04-22 23:30] VITALS: BP 143/79
[2018-04-23 04:00] VITALS: BP 169/72
--- NOTE | 2018-04-23 05:19 | NUR ---
TRANSFERRED FROM ER AROUND 2300. ASSESSMENT COMPLETED CHARTED. ABLE TO MAKE NEEDS KNOWN. UP WITH STANDBY ASSIST DUE TO C/O DIZZINESS. C/O LUNG PAIN WHEN BREATHING, GETTING BREATHING TX Q4HR. PAPERWORK SIGNED. PT RESTING IN BED AT THIS TIME. WILL CONTINUE TO MONITOR.
[2018-04-23 08:00] VITALS: BP 129/78
--- NOTE | 2018-04-23 08:00 | NUR ---
ASSUMED PT CARE AT 0700, PT IN BED, A&O X4, UP WITH ASSIST D/T PREVIOUS C/O DIZZINESS. VSS, BP TACHY D/T BTX, RA, MICROFILM DUPLICATING UNIT SUPERVISOR TRACING SINUS TACHY, HR 102. PT UNREALISTIC ABOUT CARES, REQUESTING TO BE INTUBATED OR GO TO ICU D/T O2 SAT AT 92%. EDUCATED PT ON APPROPRIATE O2 LEVELS. LS COARSE WITH WHEEZING IN ALL LOBES, PT CURRENTLY GETTING BTX. WILL CONT TO MONITOR THROUGH OUT SHIFT.
[2018-04-23 12:00] VITALS: BP 156/96
[2018-04-23 16:00] VITALS: BP 136/79
[2018-04-23] MEDS ORDERED: PREDNISONE 20 M20 MG PO (18:11)
[2018-04-23] MEDS ORDERED: ADVAIR HFA 230M12 GM INH (18:12)
[2018-04-23 18:15] VITALS: BP 136/79
--- NOTE | 2018-04-23 19:07 | NUR ---
PT DISCHARGED OFF UNIT AT APPROX 1840 VIA WC WITH BOYFRIEND AND NURSING STAFF. CHECKROOM CHIEF AND IV REMOVED PRIOR TO DISCHARGE, PT EDUCATED ON ALL DISCHARGE INSTRUCTIONS INCLUDING FOLLOW UP APPTS AND MEDICATIONS, PT STATES UNDERSTANDING. HOURLY ROUNDING COMPLETED ON PT.
--- NOTE | 2018-04-27 07:32 | CON ---
[address] [address] CONSULTATION Name: SALAS KELLY Room: [address] IN .R.#: [id number] Admission: 04/22/18 Attend Phys: Kamran Forbes MD Discharge: 04/23/18 Date of : [birth year] Report #: [id number] THIS REPORT FOR: //name// CC: Kamran Forbes [facility] physician/PCP DATE OF SERVICE: 04/23/2018 TYPE OF REPORT: New patient evaluation. REASON FOR EVALUATION: Asthma exacerbation. HISTORY OF PRESENT ILLNESS: The patient is a 27-year old who is presenting with 2 days history of worsening wheezing and cough. Has history of previous asthma, does not remember, she had previous hospitalization. Denies fever or chills. Denies mucus production. Her cough is mostly dry. She takes Singulair and breathing treatment. She has nocturnal symptoms with wheezing with nocturnal awakening. She denies any chest pain and denies hemoptysis. Chest x-ray on 04/21/2018 was clear without acute finding. She is able to speak full sentences. She is on room air; however, on examination, still wheezing. She was given Decadron in the ED, breathing treatment with some improvement. The patient is still very anxious. PAST MEDICAL HISTORY: Bronchial asthma, shortness of breath, tachycardia and tobacco abuse. ALLERGIES: Noted COMPAZINE. MEDICATIONS: Include steroids noted, QVAR, albuterol and prednisone. Other home medications include Zoloft, Abilify and Wellbutrin. SOCIAL HISTORY: Active smoking, 1/4 of a pack per day. Intermittent alcohol use. REVIEW OF SYSTEMS: A 12-point review of systems as above. CONSTITUTIONAL: Unremarkable. Snoring. ENT: Unremarkable. CARDIOVASCULAR: No chest pain. RESPIRATORY: As above. Otherwise, full 14-point review of systems negative. FAMILY HISTORY: Noncontributory. PHYSICAL EXAMINATION: GENERAL: The patient is anxious, [place] [address] CONSULTATION Name: SALAS KELLY [place]ille Room: [address]#: [id number] Admission: 04/22/18 Attend Phys: Kamran Forbes MD Discharge: 04/23/18 Date of : [birth year] Report #: [id number] VITAL SIGNS: She is afebrile, 36.2; pulse rate is 100 and blood pressure 169/72. HEAD AND NECK: Neck supple. Oral mucosa clear. CHEST: Clear. Bilateral expiratory wheezing; however, good air movement. CARDIOVASCULAR: Regular rhythm. Normal S1 and S2. ABDOMEN: Soft and nontender. EXTREMITIES: No edema. Pulses are equal. PSYCHIATRIC: Anxious. NEUROLOGICAL: No focal deficit. LABORATORY AND DATABASE: Her white blood cell count 20.7 today, could be steroid related effect. Chest x-ray, which was done on , was clear. ASSESSMENT AND PLAN: 1. Asthma exacerbation with previous history of severe persistent asthma. Agree with prednisone. Agree with bronchodilator. Recommend to add a chronic steroid inhaler with long-acting beta agonist similar to Symbicort and Advair on discharge. 2. Snoring with morbid obesity, need to be evaluated in the Sleep Clinic for possible obstructive sleep apnea, especially with elevated blood pressure. Thank you for allowing me to participate in the care of the patient. Please do not hesitate to call with questions. <ELECTRONICALLY SIGNED> By: Timo Mattson MD 04/27/18 0732 0943 2228Asem Talha Hinton MD /nt
== END 2018-04-23 18:40 | disposition home or self-care (01) | DRG 202 ==
LOC: M.ERS 19:28 → M.TBA-ER 21:45 → M.2W 22:47
PROVIDERS: Nurse Practitioner Family; ADMIT Internal Medicine
DX: J45.51 Severe persistent asthma with (acute) exacerbation (principal); Z68.43 Body mass index [BMI] 50.0-59.9, adult; E66.01 Morbid (severe) obesity due to excess calories; F41.9 Anxiety disorder, unspecified; F31.9 Bipolar disorder, unspecified; F17.210 Nicotine dependence, cigarettes, uncomplicated; G89.29 Other chronic pain; M54.9 Dorsalgia, unspecified; Z82.5 Family history of asthma and other chronic lower respiratory diseases; Z90.49 Acquired absence of other specified parts of digestive tract; Z88.8 Allergy status to other drugs, medicaments and biological substances

== ENCOUNTER 2018-04-25 20:03 | Inpatient (IN) | payer MEDICARE, MEDICAID ==
[~2018-04-25] VITALS: Ht 162.6 cm; Wt 134.7 kg
[2018-04-25 20:04] VITALS: BP 141/100
[2018-04-26 02:35] LABS: HEMATOCRIT 38.7 % (37.0-47.0); HEMOGLOBIN 12.6 gm/dL (12.0-15.0); MCH 28.3 pg (26.0-34.0); MCHC 32.5 g/dL (28.0-37.0); MCV 87.1 fL (80.0-100.0); MPV 7.5 fl. (7.2-11.1); NUCLEATED RBCS 0 /100WBC; PLATELET COUNT* 318 thou/uL (150-400); RBC 4.44 mil/uL (4.20-5.00); RDW-CV 15.4 % (10.5-14.5); WBC 19.6 thou/uL (4.0-11.0)
[2018-04-26 02:48] LABS: ALBUMIN 3.2 g/dL (3.4-5.0); CALCIUM 8.8 mg/dL (8.5-10.1); CREATININE 0.9 mg/dL (0.6-1.3); POTASSIUM 4.2 mmol/L (3.5-5.1); TOTAL BILIRUBIN 0.5 mg/dL (<0.1-1.0); TOTAL PROTEIN 7.6 g/dL (6.4-8.2)
[2018-04-26 03:30] VITALS: BP 136/84
[2018-04-26 03:58] LABS: ABSOLUTE LYMPHOCYTES 0.6 thou/uL (0.8-5.3); ABSOLUTE MONOCYTES 0.2 thou/uL (0.0-1.2); ABSOLUTE NEUTROPHILS 18.8 thou/uL (1.6-8.1)
[2018-04-26 03:59] LABS: PLATELET ESTIMATE ADEQUATE
[2018-04-26 04:00] LABS: POLYCHROMASIA 1+
[2018-04-26 09:12] VITALS: BP 124/72
[2018-04-26 09:35] VITALS: BP 128/80
--- NOTE | 2018-04-26 16:29 | 2DMMODE ---
[place] [address] 2 D/M-MODE ECHOCARDIOGRAM Name: SALAS KELLY Room: [address] IN [facility]#: [id number] Admission: 04/26/18 Attend Phys: Paras Mao MD Discharge: Date of : [birth year] Date of Service: 04/26/18 1629 Report #: [id number] THIS REPORT FOR: //name// APPROVED REPORT Study performed: 04/26/2018 15:29:49 EXAM: Comprehensive 2D, Doppler, and color-flow Echocardiogram Patient Location: In-Patient Room #: [facility] Status: routine BSA: 2.31 HR: 127 bpm BP: 128/80 mmHg Rhythm: Tachycardia Other Information Study Quality: Good Indications Dyspnea Tachycardia 2D Dimensions IVSd: 9.69 (7-11mm) LVOT Diam: 20.74 (18-24mm) LVDd: 42.67 mm PWd: 10.48 (7-11mm) Ascending Ao: 25.53 (22-36mm) LVDs: 26.13 (25-40mm) Aortic Root: 28.31 mm Volumes Left Atrial Volume (Systole) LA ESV Index: 15.40 mL/m2 Aortic Valve AoV Peak Erasto.: 1.49 m/s AO Peak Gr.: 8.89 mmHg LVOT Max P.24 mmHg AO Mean Gr.: 5.08 mmHg LVOT Mean P.26 mmHg LVOT Max V: 1.25 m/s AO V2 VTI: 19.47 cm LVOT Mean V: 0.84 m/s RORY (VTI): 3.42 cm2 LVOT V1 VTI: 19.71 cm Pulmonary Valve PV Peak Erasto.: 1.12 m/s PV Peak Gr.: 5.00 [place] [address] 2 D/M-MODE ECHOCARDIOGRAM Name: SALAS KELLY Room: [address] IN [facility]#: [id number] Admission: 04/26/18 Attend Phys: Paras Mao MD Discharge: Date of : [birth year] Date of Service: 04/26/18 1629 Report #: [id number] Left Ventricle The left ventricle is normal size. There is normal LV segmental wall motion. There is normal left ventricular wall thickness. Left ventricular systolic function is hyperdynamic. LVEF is 65-70%. The left ventricular diastolic function is normal. Right Ventricle The right ventricle is normal size. The right ventricular systolic function is normal. Atria The left atrium size is normal. The right atrium size is normal. Aortic Valve The aortic valve is normal in structure. No aortic regurgitation is present. There is no aortic valvular stenosis. Mitral Valve The mitral valve is normal in structure. There is no mitral valve regurgitation noted. No evidence of mitral valve stenosis. Tricuspid Valve The tricuspid valve is normal in structure. Trace tricuspid regurgitation. Unable to assess PA pressure. Pulmonic Valve The pulmonary valve is normal in structure. There is no pulmonic valvular regurgitation. Great Vessels The aortic root is normal in size. IVC is normal in size and collapses >50% with inspiration. Pericardium There is no pericardial effusion. <Conclusion> The left ventricle is normal size. There is normal left ventricular wall thickness. Left ventricular systolic function is hyperdynamic. LVEF is 65-70%. The right ventricle is normal size. The left atrium size is normal. The aortic valve is normal in structure. The mitral valve is [place] [address] 2 D/M-MODE ECHOCARDIOGRAM Name: SALAS KELLY Room: [address]#: [id number] Admission: 04/26/18 Attend Phys: Paras Mao MD Discharge: Date of : [birth year] Date of Service: 04/26/18 1629 Report #: [id number] The tricuspid valve is normal in structure. IVC is normal in size and collapses >50% with inspiration. There is no pericardial effusion. There is normal LV segmental wall motion. <ELECTRONICALLY SIGNED> By: Rhett Lau MD, [facility] 04/26/18 1629 1629 1629 Rhett Lau MD, [facility] /INF
--- NOTE | 2018-04-26 17:16 | EKG ---
[place] [address] ELECTROCARDIOGRAM REPORT Name: SALAS KELLY Room: [address] ADM IN [facility].#: [id number] Admission: 04/26/18 Attend Phys: Paras Mao MD Discharge: Date of : [birth year] Report #: [id number] THIS REPORT FOR: //name// [facility] Test Date: 2018-04-26 Test Time: 16:34:50 Pat Name: SALAS KELLY Department: Room: [address] Gender: F Senior Rd Engineer: : 1990 Requested By: Michele Hill Order Number: [id number] Laura MD: Bijan Guillory Measurements Intervals [place] Rate: 124 P: 56 [place]: 126 QRS: 14 QRSD: 81 T: 5 QT: 326 QTc: 469 Interpretive Statements Sinus tachycardia Compared to ECG 04/13/2018 16:22:15 No significant changes Electronically Signed On 04-26-2018 17:16:33 GLOBAL MARKETING SPECIALIST by Bijan Guillory [email or web address] <ELECTRONICALLY SIGNED> By: Bijan Guillory MD, [facility] 04/26/18 1716 1634 1634 Bijan Guillory MD, FACC /EPI
[2018-04-26 20:00] VITALS: BP 154/82
[2018-04-27 05:04] VITALS: BP 142/93
[2018-04-27 08:10] VITALS: BP 134/79
[2018-04-27 16:37] VITALS: BP 143/76
[2018-04-27 20:00] VITALS: BP 149/93
[2018-04-28 05:27] LABS: ABSOLUTE BASOPHILS 0.2 thou/uL (0.0-0.2); ABSOLUTE EOSINOPHILS 0.1 thou/uL (0.0-0.7); ABSOLUTE LYMPHOCYTES 3.1 thou/uL (0.8-5.3); ABSOLUTE MONOCYTES 1.6 thou/uL (0.0-1.2); ABSOLUTE NEUTROPHILS 12.5 thou/uL (1.6-8.1); BASOPHILS 1.1 %; EOSINOPHILS 0.7 %; HEMATOCRIT 35.5 % (37.0-47.0); HEMOGLOBIN 11.4 gm/dL (12.0-15.0); LYMPHOCYTES 17.9 %; MCH 28.3 pg (26.0-34.0); MCV 88.2 fL (80.0-100.0); MONOCYTES 8.9 %; MPV 7.2 fl. (7.2-11.1); NUCLEATED RBCS 0 /100WBC; PLATELET COUNT* 312 thou/uL (150-400); POLYS 71.4 %; RBC 4.03 mil/uL (4.20-5.00); RDW-CV 15.3 % (10.5-14.5); WBC 17.6 thou/uL (4.0-11.0)
[2018-04-28 05:58] LABS: ALBUMIN 2.9 g/dL (3.4-5.0); CALCIUM 8.7 mg/dL (8.5-10.1); CREATININE 0.7 mg/dL (0.6-1.3); POTASSIUM 3.9 mmol/L (3.5-5.1); TOTAL BILIRUBIN 0.3 mg/dL (<0.1-1.0); TOTAL PROTEIN 6.9 g/dL (6.4-8.2)
[2018-04-28 08:00] VITALS: BP 130/73
[2018-04-28] MEDS ORDERED: LEVAQUIN 500 M500 M2 PO (12:55)
[2018-04-28] MEDS ORDERED: PREDNISONE 10 M10 MG PO (12:55)
[2018-04-28 15:24] VITALS: BP 130/73
[2018-04-28 15:54] VITALS: BP 130/73
[2018-04-28] MEDS ORDERED: TYLENOL325 MG PO (16:06)
[2018-04-28] MEDS ORDERED: IBUPROFEN 800800 M1 PO (16:13)
[2018-04-28] MEDS ORDERED: NICOTINE TRANSD21 M1 (16:23)
[2018-04-28 17:54] VITALS: BP 130/73
== END 2018-04-28 16:40 | disposition home health service (06) | DRG 177 ==
LOC: M.ERS 20:03 → M.ORTHSURG 04-26 00:11 → M.TBA-ER 04-26 00:11 → M.ORTHSURG 04-26 07:29
PROVIDERS: Emergency Medicine; Internal Medicine; ADMIT Family Medicine
DX: J69.0 Pneumonitis due to inhalation of food and vomit (principal); J80 Acute respiratory distress syndrome; J45.901 Unspecified asthma with (acute) exacerbation; Z68.43 Body mass index [BMI] 50.0-59.9, adult; E66.01 Morbid (severe) obesity due to excess calories; F41.9 Anxiety disorder, unspecified; F31.9 Bipolar disorder, unspecified; F17.210 Nicotine dependence, cigarettes, uncomplicated; G89.29 Other chronic pain; M54.9 Dorsalgia, unspecified; Z90.49 Acquired absence of other specified parts of digestive tract; Z88.8 Allergy status to other drugs, medicaments and biological substances; Z82.5 Family history of asthma and other chronic lower respiratory diseases; Z79.899 Other long term (current) drug therapy

== ENCOUNTER 2018-04-30 16:33 | Inpatient (IN) | payer MEDICARE, MEDICAID ==
[~2018-04-30] VITALS: Ht 154.9 cm; Wt 142.9 kg
--- NOTE | ~2018-04-30 | EKG ---
[place] [address] ELECTROCARDIOGRAM REPORT Name: SALAS KELLY Room: [address] IN [facility].#: [id number] Admission: 04/30/18 Attend Phys: Micheal May, Discharge: Date of : [birth year] Report #: [id number] THIS REPORT FOR: //name// [facility] ED Test Date: 2018-04-30 Test Time: 17:07:31 Pat Name: SALAS KELLY Department: Room: [facility] Gender: F Carpenter Form: Nishant PEÑALOZA : 1990 Requested By: Dwight Nichols Order Number: [id number] MD: Measurements Intervals [place] Rate: 132 P: 77 [place]: 122 QRS: 12 QRSD: 98 T: 28 QT: 312 QTc: 463 Interpretive Statements Sinus tachycardia Low voltage, precordial leads Compared to ECG 04/26/2018 16:34:50 Low QRS voltage now present [email or web address] By: 1707 1707 Epiphany Epiphany, /EPI
[~2018-04-30 16:33] MED LIST changes: +IBUPROFEN 800800 M1 PO; +LEVAQUIN 500 M500 M2 PO; +NICOTINE TRANSD21 M1; +TYLENOL325 MG PO
[2018-04-30 16:47] VITALS: BP 170/118
[2018-04-30 17:06] LABS: BE 2.1 mmol/L (-2 to +3); PCO2 42.2 mmHg (35.0-45.0); PO2 67.4 mmHg (75.0-100.0); pH 7.421 (7.340-7.450)
[2018-04-30 17:06] LABS: HEMATOCRIT 40.8 % (37.0-47.0); HEMOGLOBIN 13.2 gm/dL (12.0-15.0); MCH 28.3 pg (26.0-34.0); MCHC 32.3 g/dL (28.0-37.0); MCV 87.6 fL (80.0-100.0); MPV 7.2 fl. (7.2-11.1); NUCLEATED RBCS 0 /100WBC; PLATELET COUNT* 365 thou/uL (150-400); RBC 4.65 mil/uL (4.20-5.00); RDW-CV 15.4 % (10.5-14.5); WBC 20.9 thou/uL (4.0-11.0)
[2018-04-30 17:10] LABS: URINE BILIRUBIN NEGATIVE (Negative); URINE BLOOD 3+ (Negative); URINE CLARITY CLEAR; URINE COLOR YELLOW; URINE GLUCOSE-RANDOM NEGATIVE (Negative); URINE KETONES NEGATIVE (Negative); URINE LEUKOCYTES-REFLEX NEGATIVE (Negative); URINE NITRITE-REFLEX NEGATIVE (Negative); URINE PROTEIN NEGATIVE (Negative); URINE UROBILINOGEN 0.2 E.U./dl (0.2-1.0)
[2018-04-30 17:21] LABS: ALBUMIN 3.4 g/dL (3.4-5.0); CALCIUM 9.3 mg/dL (8.5-10.1); CREATININE 0.9 mg/dL (0.6-1.3); POTASSIUM 4.2 mmol/L (3.5-5.1); TOTAL BILIRUBIN 0.1 mg/dL (<0.1-1.0); TOTAL PROTEIN 7.7 g/dL (6.4-8.2)
[2018-04-30 17:21] LABS: AMP/METHAMP Negative (Negative); BARBITURATES Negative (Negative); BENZODIAZEPINES Negative (Negative); COCAINE Negative (Negative); METHADONE Negative (Negative); OPIATES POSITIVE (Negative); PCP Negative (Negative); THC Negative (Negative)
[2018-04-30 17:23] LABS: BACTERIA-REFLEX 1-9 Few /HPF (None Seen); SQUAMOUS 4-10 Moderate /LPF (0-3); URINE WBC-REFLEX 0-5 Rare /HPF (0-5)
[2018-04-30 17:24] LABS: CASTS None Seen /LPF (None Seen); CRYSTALS None Seen /LPF (None Seen); MUCUS 0-3 Light strn/LPF (None Seen)
[2018-04-30 17:33] LABS: ABSOLUTE LYMPHOCYTES 1.5 thou/uL (0.8-5.3); ABSOLUTE MONOCYTES 0.2 thou/uL (0.0-1.2); ABSOLUTE NEUTROPHILS 19.2 thou/uL (1.6-8.1); PLATELET ESTIMATE ADEQUATE
[2018-04-30 17:34] LABS: ANISOCYTOSIS Occasional
[2018-04-30 20:00] VITALS: BP 111/71; BP 129/65
[2018-05-01] VITALS: BP 119/81
[2018-05-01 04:00] VITALS: BP 150/93
[2018-05-01 06:07] LABS: INFLUENZA A ANTIGEN None Detected (None Detect); INFLUENZA B ANTIGEN None Detected (None Detect)
[2018-05-01 09:00] VITALS: BP 128/78
[2018-05-01 12:00] VITALS: BP 134/77
[2018-05-01 16:25] VITALS: BP 137/72
[2018-05-01 20:00] VITALS: BP 129/69
[2018-05-01] MEDS ORDERED: MELATONIN10 M1 PO (22:06)
[2018-05-02] VITALS (7 sets, daily range): BP systolic 118–141; BP diastolic 69–94
[2018-05-02 04:24] LABS: HEMATOCRIT 35.8 % (37.0-47.0); HEMOGLOBIN 11.5 gm/dL (12.0-15.0); MCH 28.3 pg (26.0-34.0); MCHC 32.2 g/dL (28.0-37.0); MCV 88.2 fL (80.0-100.0); MPV 7.4 fl. (7.2-11.1); RBC 4.06 mil/uL (4.20-5.00); RDW-CV 15.3 % (10.5-14.5); WBC 18.6 thou/uL (4.0-11.0)
[2018-05-02 04:37] LABS: CALCIUM 8.7 mg/dL (8.5-10.1); CREATININE 0.7 mg/dL (0.6-1.3); POTASSIUM 4.2 mmol/L (3.5-5.1)
[2018-05-03] VITALS: BP 138/86
[2018-05-03 04:00] VITALS: BP 134/79
--- NOTE | 2018-05-03 12:33 | CON ---
[address] [address] CONSULTATION Name: SALAS KELLY Room: [address] IN [facility]#: [id number] Admission: 04/30/18 Attend Phys: Micheal May, Discharge: Date of : [birth year] Report #: [id number] THIS REPORT FOR: //name// CC: GRADY physician/PCP Micheal May DATE OF SERVICE: 05/01/2018 PRIMARY CARE PHYSICIANS: Dwight Nichols, nurse practitioner and Radha Garza, nurse practitioner at [place], [place]. ADMITTING PHYSICIAN: Dr. May. LOCATION: The patient is located in room 224. INDICATION FOR CONSULTATION: Asthma exacerbation, elevated carboxyhemoglobin level secondary to cigarette smoking. CLINICAL SUMMARY: The patient, 27-year-old female, current smoker with cough and wheezing. She was just in the hospital last week from Wednesday through , was discharged home on prednisone taper and Levaquin. Started going home and immediately smoking. Had increased cough with wheezing. She was not on any oxygen at home. She was placed on 3 liters here. She was seen in the Emergency Room. She had an elevated carboxyhemoglobin level of 3.7%. She denies any gas or carbon monoxide leaks from her furnace systems. She was more short of breath and wheezy. She still tells me she is only smoking 1 or 2 small cigars a day. She denies any esophageal reflux. Denies any sinus drainage. She has consistent pleuritic chest pain. She has had previous CT angiograms of the chest that have been negative, and she constantly asks for fentanyl or morphine for pain. States she has had asthma for years and takes Advair inhaler, just p.r.n. and has an albuterol inhaler at home. I am not really certain whether she has a nebulizer at home, she was not clear about that, may be 1 or 2 rounds of prednisone every year or 2 for bronchitis and bronchospasm. PAST MEDICAL HISTORY: 1. Long history of asthma. Again, not oxygen or steroid dependent, poorly controlled. 2. Atypical chest pain. 3. Obesity. 4. Probable obstructive sleep apnea syndrome. 5. She did have bipolar disorder in the past. PAST SURGICAL HISTORY: Includes tonsillectomy at age 6 and cholecystectomy in [address] [address] CONSULTATION Name: SALAS KELLY Room: [address]#: [id number] Admission: 04/30/18 Attend Phys: Micehal May, Discharge: Date of : [birth year] Report #: [id number] SHE HAS ALLERGIES OR INTOLERANCES TO COMPAZINE, WHICH MAKES HER NECK HURT. OUTPATIENT MEDICATIONS: Included albuterol inhaler and a prednisone taper, and she was also supposed to be on levofloxacin 500 mg daily for 3-5 days. Other medications include Lamictal 200 mg b.i.d. and then Abilify 15 mg daily, sertraline 50 mg at bedtime and then bupropion 150 mg daily, montelukast 10 mg daily and supposed to be on Advair HFA 230/21 two puffs b.i.d. and a nicotine patch 21 mg daily. FAMILY HISTORY: Negative for premature cardiopulmonary disease. SOCIAL HISTORY: Lives at home with her boyfriend. She has no children. Smoking somewhere between 5 and 10 small cigars a day with increased cough with wheezing. Denies any alcohol use or illicit drug use. REVIEW OF SYSTEMS: A 14-point review of systems is reviewed and negative except for pertinent positives in the HPI. PHYSICAL EXAMINATION: GENERAL: This is a 27-year-old female with moderate wheezing. VITAL SIGNS: Blood pressure is 128/78, heart rate is 96-100, respirations were 20, saturation on 2 liters is 98%, temperature is 36.8 degrees. She is 5 feet 4 inches tall, weight is 136 kilograms or 300 pounds. BMI is 56. HEENT: Sinuses nontender. Pharynx is clear. She is on oxygen at 2 liters. NECK: Supple without nodes. CHEST: Shows inspiratory and expiratory wheezes bilaterally. CARDIOVASCULAR: Regular rate and rhythm without murmur, gallop or rub. Heart rate is 96-100. ABDOMEN: Obese without masses or megaly. EXTREMITIES: No calf tenderness. No cyanosis, clubbing or edema. NEUROLOGIC: Grossly intact. LABORATORY DATA: Hemoglobin is 13, white count is 20,000 and platelets are 365,000, neutrophils are 19,000. Sodium is 138, potassium is 4.2, BUN is 19, creatinine 0.9, anion gap is 5, bicarbonate is 32. Calcium is 9.3. LFTs within normal limits. Albumin is 3.4. ABGs on 3 liters from 04/30/2018 at 5:00 p.m. in the afternoon shows a pO2 of 67, a pH of 7.42, pCO2 is 42, bicarbonate is 27, measured O2 sats 89%. Carboxyhemoglobin is 3.5 percentage points, which is elevated. Chest x-ray and then, CT of the chest were negative. CT angio of the chest did not show any pulmonary emboli and no dissection. EKGs have been unremarkable. IMPRESSION: 1. Recurrent asthma and bronchospasm related to cigarette use, elevated carboxyhemoglobin level at 3.7%. [facility] [address] [place] [address] CONSULTATION Name: SALAS KELLY Lucille Room: [address] IN [facility].#: [id number] Admission: 04/30/18 Attend Phys: Micheal May, Discharge: Date of : [birth year] Report #: [id number] 2. Atypical chest pain, possibly drug seeking behavior. 3. Bronchospasm. 4. Chronic tobacco use. PLAN: Again, encouraged the patient to discontinue all tobacco use. She states her boyfriend is going to make certain that she does not smoke anymore. I again encouraged her to discontinue this. Add oral bronchodilators. Continue with montelukast and steroid taper. I am not certain she actually needs antibiotics at least at this time. She may need several days to clear up. No evidence for congestive heart failure. No evidence for occult pulmonary emboli. May need a sleep study and full PFTs as an outpatient if she stabilizes. She needs to use albuterol nebulizers at home twice a day, use her Advair HFA 230/21 two puffs b.i.d. routinely instead of just on a p.r.n. basis, also needs montelukast 10 mg daily as an outpatient and albuterol tablets. Thanks again for allowing us to participate in this lady's care. We will follow up along with you. <ELECTRONICALLY SIGNED> By: Timo Mattson MD 05/03/18 1233 1134 0708Timo Mattson MD /nt
[2018-05-03 12:48] VITALS: BP 137/81
[2018-05-03 17:29] VITALS: BP 150/92
[2018-05-04 04:18] LABS: HEMATOCRIT 37.6 % (37.0-47.0); HEMOGLOBIN 12.2 gm/dL (12.0-15.0); MCH 28.4 pg (26.0-34.0); MCHC 32.4 g/dL (28.0-37.0); MCV 87.7 fL (80.0-100.0); MPV 7.6 fl. (7.2-11.1); NUCLEATED RBCS 0 /100WBC; PLATELET COUNT* 307 thou/uL (150-400); RBC 4.29 mil/uL (4.20-5.00); RDW-CV 15.5 % (10.5-14.5); WBC 15.1 thou/uL (4.0-11.0)
[2018-05-04 04:24] LABS: CALCIUM 8.4 mg/dL (8.5-10.1); CREATININE 0.7 mg/dL (0.6-1.3); POTASSIUM 4.4 mmol/L (3.5-5.1); TOTAL BILIRUBIN 0.4 mg/dL (<0.1-1.0); TOTAL PROTEIN 7.3 g/dL (6.4-8.2)
[2018-05-04 05:22] LABS: ABSOLUTE LYMPHOCYTES 0.9 thou/uL (0.8-5.3); ABSOLUTE MONOCYTES 1.1 thou/uL (0.0-1.2); ABSOLUTE NEUTROPHILS 13.1 thou/uL (1.6-8.1); ANISOCYTOSIS 1+; PLATELET ESTIMATE ADEQUATE; POIKILOCYTOSIS 1+
[2018-05-04 07:56] VITALS: BP 134/80
[2018-05-04 16:00] VITALS: BP 136/79
[2018-05-05] VITALS: BP 115/65
[2018-05-05 04:05] LABS: ABSOLUTE BASOPHILS 0.1 thou/uL (0.0-0.2); ABSOLUTE EOSINOPHILS 0.1 thou/uL (0.0-0.7); ABSOLUTE LYMPHOCYTES 4.3 thou/uL (0.8-5.3); ABSOLUTE MONOCYTES 2.1 thou/uL (0.0-1.2); ABSOLUTE NEUTROPHILS 14.5 thou/uL (1.6-8.1); BASOPHILS 0.7 %; EOSINOPHILS 0.3 %; HEMATOCRIT 37.3 % (37.0-47.0); HEMOGLOBIN 11.8 gm/dL (12.0-15.0); LYMPHOCYTES 20.4 %; MCH 27.9 pg (26.0-34.0); MCHC 31.7 g/dL (28.0-37.0); MCV 88.1 fL (80.0-100.0); MPV 7.1 fl. (7.2-11.1); NUCLEATED RBCS 0 /100WBC; PLATELET COUNT* 293 thou/uL (150-400); POLYS 68.6 %; RBC 4.23 mil/uL (4.20-5.00); RDW-CV 15.6 % (10.5-14.5); WBC 21.1 thou/uL (4.0-11.0)
[2018-05-05 04:17] LABS: CALCIUM 8.6 mg/dL (8.5-10.1); CREATININE 0.8 mg/dL (0.6-1.3); POTASSIUM 4.1 mmol/L (3.5-5.1)
[2018-05-05 08:00] VITALS: BP 135/85
[2018-05-05] MEDS ORDERED: AUGMENTIN 875-1 EACH (12:11)
[2018-05-05] MEDS ORDERED: PROTONIX40 M1 PO (12:12)
[2018-05-05 12:14] VITALS: BP 135/85
[2018-05-05 12:55] VITALS: BP 135/85
== END 2018-05-05 13:44 | disposition home health service (06) | DRG 189 ==
LOC: M.ERS 16:33 → M.2W 18:20 → M.TBA-ER 18:20 → M.2W 20:21 → M.3W 05-03 20:45
PROVIDERS: Internal Medicine; Nurse Practitioner Family; ADMIT Family Medicine
DX: J96.21 Acute and chronic respiratory failure with hypoxia (principal); J45.51 Severe persistent asthma with (acute) exacerbation; Z68.43 Body mass index [BMI] 50.0-59.9, adult; E66.01 Morbid (severe) obesity due to excess calories; G89.29 Other chronic pain; F41.9 Anxiety disorder, unspecified; M54.5 Low back pain; F31.9 Bipolar disorder, unspecified; Z90.49 Acquired absence of other specified parts of digestive tract; Z88.8 Allergy status to other drugs, medicaments and biological substances; Z91.19 Patient's noncompliance with other medical treatment and regimen; Z79.899 Other long term (current) drug therapy

== ENCOUNTER 2018-05-19 12:36 | Emergency (ER) | payer MEDICARE, MEDICAID ==
[~2018-05-19] VITALS: Ht 162.6 cm; Wt 142.1 kg
[~2018-05-19 12:36] MED LIST changes: +AUGMENTIN 875-1 EACH; +MELATONIN10 M1 PO
[2018-05-19 13:30] LABS: URINE BILIRUBIN NEGATIVE (Negative); URINE BLOOD NEGATIVE (Negative); URINE CLARITY CLEAR; URINE COLOR YELLOW; URINE GLUCOSE-RANDOM NEGATIVE (Negative); URINE KETONES NEGATIVE (Negative); URINE LEUKOCYTES-REFLEX NEGATIVE (Negative); URINE NITRITE-REFLEX NEGATIVE (Negative); URINE PROTEIN NEGATIVE (Negative); URINE SPECIFIC GRAVITY 1.015 (1.005-1.030); URINE UROBILINOGEN 0.2 E.U./dl (0.2-1.0)
[2018-05-19 14:12] LABS: ABSOLUTE BASOPHILS 0.1 thou/uL (0.0-0.2); ABSOLUTE EOSINOPHILS 0.2 thou/uL (0.0-0.7); ABSOLUTE LYMPHOCYTES 1.6 thou/uL (0.8-5.3); ABSOLUTE MONOCYTES 0.7 thou/uL (0.0-1.2); ABSOLUTE NEUTROPHILS 8.8 thou/uL (1.6-8.1); EOSINOPHILS 1.5 %; HEMATOCRIT 35.2 % (37.0-47.0); HEMOGLOBIN 11.5 gm/dL (12.0-15.0); LYMPHOCYTES 13.7 %; MCH 28.6 pg (26.0-34.0); MCHC 32.6 g/dL (28.0-37.0); MCV 87.8 fL (80.0-100.0); MONOCYTES 6.2 %; MPV 6.8 fl. (7.2-11.1); NUCLEATED RBCS 0 /100WBC; PLATELET COUNT* 229 thou/uL (150-400); POLYS 77.6 %; RBC 4.01 mil/uL (4.20-5.00); RDW-CV 15.6 % (10.5-14.5); WBC 11.3 thou/uL (4.0-11.0)
[2018-05-19 14:28] VITALS: BP 140/83
== END 2018-05-19 14:29 | disposition home or self-care (01) ==
LOC: M.ERS 12:36
PROVIDERS: Personal Emergency Response Attendant
DX: R51 Headache (principal); R06.02 Shortness of breath; J45.909 Unspecified asthma, uncomplicated; F31.9 Bipolar disorder, unspecified; F41.9 Anxiety disorder, unspecified; G89.29 Other chronic pain; M54.9 Dorsalgia, unspecified; E66.01 Morbid (severe) obesity due to excess calories; F17.210 Nicotine dependence, cigarettes, uncomplicated; Z68.43 Body mass index [BMI] 50.0-59.9, adult; Z88.8 Allergy status to other drugs, medicaments and biological substances

== ENCOUNTER 2018-05-23 19:37 | Emergency (ER) | payer MEDICARE, MEDICAID ==
[~2018-05-23] VITALS: Ht 162.6 cm; Wt 138.8 kg
[2018-05-23 20:25] LABS: HEMATOCRIT 35.1 % (37.0-47.0); HEMOGLOBIN 11.4 gm/dL (12.0-15.0); MCH 28.8 pg (26.0-34.0); MCHC 32.5 g/dL (28.0-37.0); MCV 88.5 fL (80.0-100.0); MPV 7.2 fl. (7.2-11.1); NUCLEATED RBCS 0 /100WBC; PLATELET COUNT* 249 thou/uL (150-400); RBC 3.97 mil/uL (4.20-5.00); RDW-CV 15.4 % (10.5-14.5); WBC 13.9 thou/uL (4.0-11.0)
[2018-05-23 20:42] LABS: ALBUMIN 2.8 g/dL (3.4-5.0); ALKALINE PHOSPHATASE 72 U/L (46-116); ANION GAP 7 mmol/L (7-16); BUN 10 mg/dL (7-18); CALCIUM 8.4 mg/dL (8.5-10.1); CHLORIDE 105 mmol/L (98-107); CO2 26 mmol/L (21-32); CREATININE 0.6 mg/dL (0.6-1.3); GLUCOSE 104 mg/dL (70-99); POTASSIUM 4.6 mmol/L (3.5-5.1); SGOT 22 U/L (15-37); SGPT 16 U/L (30-65); SODIUM 138 mmol/L (136-145); TOTAL BILIRUBIN 0.3 mg/dL (<0.1-1.0); TROPONIN-I LEVEL <0.06 ng/mL (<0.06)
[2018-05-23] MEDS ORDERED: PREDNISONE 10 M10 MG PO (20:53)
[2018-05-23 20:58] LABS: ABSOLUTE LYMPHOCYTES 1.9 thou/uL (0.8-5.3); ABSOLUTE MONOCYTES 1.1 thou/uL (0.0-1.2); ABSOLUTE NEUTROPHILS 10.8 thou/uL (1.6-8.1)
[2018-05-23 21:00] LABS: PLATELET ESTIMATE ADEQUATE
[2018-05-23 21:29] VITALS: BP 130/75
--- NOTE | 2018-05-24 10:04 | EKG ---
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
== END 2018-05-23 21:30 | disposition home or self-care (01) ==
LOC: M.ERS 19:37
PROVIDERS: Nurse Practitioner Family
DX: R51 Headache (principal); G89.29 Other chronic pain; R07.89 Other chest pain; J45.909 Unspecified asthma, uncomplicated; F17.210 Nicotine dependence, cigarettes, uncomplicated; E66.01 Morbid (severe) obesity due to excess calories; F31.9 Bipolar disorder, unspecified; F41.9 Anxiety disorder, unspecified; M54.9 Dorsalgia, unspecified; Z90.49 Acquired absence of other specified parts of digestive tract; Z88.8 Allergy status to other drugs, medicaments and biological substances; Z68.43 Body mass index [BMI] 50.0-59.9, adult; Z90.89 Acquired absence of other organs

== ENCOUNTER 2018-05-29 22:10 | Inpatient (IN) | payer MEDICARE, MEDICAID ==
[~2018-05-29] VITALS: Ht 162.6 cm; Wt 138.8 kg
[2018-05-29 22:14] VITALS: BP 145/93
--- NOTE | 2018-05-29 22:39 | NUR ---
RADIOLOGY AT BEDSIDE
[2018-05-29 22:52] LABS: ABSOLUTE BASOPHILS 0.2 thou/uL (0.0-0.2); ABSOLUTE EOSINOPHILS 0.2 thou/uL (0.0-0.7); ABSOLUTE LYMPHOCYTES 2.3 thou/uL (0.8-5.3); ABSOLUTE MONOCYTES 0.9 thou/uL (0.0-1.2); ABSOLUTE NEUTROPHILS 14.2 thou/uL (1.6-8.1); BASOPHILS 0.9 %; EOSINOPHILS 1.3 %; HEMOGLOBIN 11.6 gm/dL (12.0-15.0); LYMPHOCYTES 12.9 %; MCH 28.1 pg (26.0-34.0); MCHC 32.1 g/dL (28.0-37.0); MCV 87.6 fL (80.0-100.0); MONOCYTES 5.1 %; MPV 7.3 fl. (7.2-11.1); NUCLEATED RBCS 0 /100WBC; PLATELET COUNT* 353 thou/uL (150-400); POLYS 79.8 %; RBC 4.11 mil/uL (4.20-5.00); RDW-CV 15.3 % (10.5-14.5); WBC 17.8 thou/uL (4.0-11.0)
[2018-05-29 23:07] LABS: CALCIUM 8.7 mg/dL (8.5-10.1); CREATININE 0.7 mg/dL (0.6-1.3); TOTAL BILIRUBIN 0.3 mg/dL (<0.1-1.0); TOTAL PROTEIN 7.2 g/dL (6.4-8.2)
--- NOTE | 2018-05-30 00:59 | NUR ---
RESPIRATORY AT BEDSIDE
[2018-05-30 03:05] VITALS: BP 127/76
--- NOTE | 2018-05-30 03:25 | NUR ---
WOKE PT TO UPDATE HER ON HER STATUS. PT BELONGINGS PLACED IN BAG. PT IS UP TO DATE ON POC.
[2018-05-30 03:45] VITALS: BP 121/81
--- NOTE | 2018-05-30 05:51 | NUR ---
PT ARRIVED ON UNIT FROM ER AT 0345 PT ALERT AND ORIENTED X4 VS AND ASSESSMENT STABLE PT REQUEST SOMETHING FOR PAIN NOTIFIED DR GARCÍA. WILL CONTINUE PLAN OF CARE.
[2018-05-30 07:40] VITALS: BP 126/65
--- NOTE | 2018-05-30 13:12 | EKG ---
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 05/30/18 1312 31 31 Kevin Lorenzo MD, [facility] /EPI
[2018-05-30 16:20] VITALS: BP 145/79
--- NOTE | 2018-05-30 17:09 | NUR ---
NO CHANGE IN PATIENT ASSESSMENT. AOX4. ROOM AIR. NO APPARENT DISTRESS. PATIENT SLEPT MOST OF SHIFT, UP TO EAT FOR MEALS. PATIENT ASKING TO DISCHARGE TONIGHT. PHYSICIAN PAGED, AWAITING RESPONSE.
[2018-05-30] MEDS ORDERED: DOXYCYCLINE 10100 MG PO (17:31)
[2018-05-30] MEDS ORDERED: PREDNISONE 20 M20 MG PO (17:32)
[2018-05-30 17:34] VITALS: BP 145/79
--- NOTE | 2018-05-30 18:43 | NUR ---
PATIENT DISCHARGED HOME. SCRIPTS CALLED TO PHARMACY FOR DOXYCYCLINE AND PREDNISONE. PATIENT'S BOYFRIEND GATHERED ALL HER BELONGINGS. TRANSPORTED TO DOOR BY WHEELCHAIR WITH NURSING STAFF. LEFT BY PRIVATE VEHICLE.
--- NOTE | 2018-05-31 12:23 | NUR ---
PT.DISCHARGED LATE LAST EVENING AND WAS IN OUR ER ABOAUT 0300 THIS AM. CM HAD DISCUSSED WITH , YESTERDAY, ABOUT CONCERNS ABOUT HOME SITUATION,MOM BEING HER GUARDIAN AND NOT SUPPORTIVE AND FREQUENT HOSPITALIZATIONS. WAS UNABLE TO SEE PT.PRIOR TO HER DISCHARGE. CM LEFT FOR [facility] [phone] ABOUT THIS HOSPITALIZATION/DISCHARGE AND BACK IN ER THIS AM.
== END 2018-05-30 18:43 | disposition home or self-care (01) | DRG 202 ==
LOC: M.ERS 22:10 → M.ORTHSURG 05-30 02:00 → M.TBA-ER 05-30 02:00 → M.ORTHSURG 05-30 03:45
PROVIDERS: Emergency Medicine; ADMIT Internal Medicine
DX: J20.9 Acute bronchitis, unspecified (principal); Z68.43 Body mass index [BMI] 50.0-59.9, adult; R65.10 Systemic inflammatory response syndrome (SIRS) of non-infectious origin without acute organ dysfunction; E66.01 Morbid (severe) obesity due to excess calories; G89.29 Other chronic pain; Z90.49 Acquired absence of other specified parts of digestive tract; F41.9 Anxiety disorder, unspecified; F31.9 Bipolar disorder, unspecified; M54.9 Dorsalgia, unspecified; Z88.8 Allergy status to other drugs, medicaments and biological substances; Z82.5 Family history of asthma and other chronic lower respiratory diseases; Z91.19 Patient's noncompliance with other medical treatment and regimen; J45.909 Unspecified asthma, uncomplicated

== ENCOUNTER 2018-05-31 02:59 | Emergency (ER) | payer MEDICARE, MEDICAID ==
[~2018-05-31] VITALS: Ht 162.6 cm; Wt 138.8 kg
[~2018-05-31 02:59] MED LIST changes: +DOXYCYCLINE 10100 MG PO
[2018-05-31 04:42] VITALS: BP 132/78
== END 2018-05-31 04:26 | disposition home or self-care (01) ==
LOC: M.ERS 02:59
DX: J45.909 Unspecified asthma, uncomplicated (principal); E66.01 Morbid (severe) obesity due to excess calories; Z68.43 Body mass index [BMI] 50.0-59.9, adult; F31.9 Bipolar disorder, unspecified; F41.9 Anxiety disorder, unspecified; M54.9 Dorsalgia, unspecified; G89.29 Other chronic pain; Z90.49 Acquired absence of other specified parts of digestive tract; F17.210 Nicotine dependence, cigarettes, uncomplicated; Z88.8 Allergy status to other drugs, medicaments and biological substances

== ENCOUNTER 2018-06-21 13:34 | Emergency (ER) | payer MEDICARE, MEDICAID ==
[~2018-06-21] VITALS: Ht 162.6 cm; Wt 141.5 kg
[2018-06-21] MEDS ORDERED: PREDNISONE50 MG PO (14:37)
[2018-06-21 14:44] VITALS: BP 124/76
== END 2018-06-21 14:46 | disposition home or self-care (01) ==
LOC: M.ERS 13:34
DX: J45.901 Unspecified asthma with (acute) exacerbation (principal); F17.210 Nicotine dependence, cigarettes, uncomplicated; E66.01 Morbid (severe) obesity due to excess calories; F31.9 Bipolar disorder, unspecified; F41.9 Anxiety disorder, unspecified; M54.9 Dorsalgia, unspecified; G89.29 Other chronic pain; Z88.8 Allergy status to other drugs, medicaments and biological substances; Z90.49 Acquired absence of other specified parts of digestive tract; Z90.89 Acquired absence of other organs; Z68.43 Body mass index [BMI] 50.0-59.9, adult

== ENCOUNTER 2018-06-27 01:32 | Emergency (ER) | payer MEDICARE, MEDICAID ==
[~2018-06-27] VITALS: Ht 162.6 cm; Wt 138.8 kg
[2018-06-27 02:50] VITALS: BP 130/74
== END 2018-06-27 02:50 | disposition home or self-care (01) ==
LOC: M.ERS 01:32
DX: R10.11 Right upper quadrant pain (principal); F17.210 Nicotine dependence, cigarettes, uncomplicated; J45.909 Unspecified asthma, uncomplicated; E66.01 Morbid (severe) obesity due to excess calories; F31.9 Bipolar disorder, unspecified; F41.9 Anxiety disorder, unspecified; M54.9 Dorsalgia, unspecified; G89.29 Other chronic pain; Z90.49 Acquired absence of other specified parts of digestive tract; Z88.8 Allergy status to other drugs, medicaments and biological substances; Z68.43 Body mass index [BMI] 50.0-59.9, adult; Z90.89 Acquired absence of other organs

== ENCOUNTER 2018-07-08 19:25 | Emergency (ER) | payer MEDICARE, MEDICAID ==
[~2018-07-08] VITALS: Ht 162.6 cm; Wt 145.2 kg
[2018-07-08 21:18] VITALS: BP 135/78
== END 2018-07-08 21:19 | disposition home or self-care (01) ==
LOC: M.ERS 19:25
DX: S93.491A Sprain of other ligament of right ankle, initial encounter (principal); F17.210 Nicotine dependence, cigarettes, uncomplicated; J45.909 Unspecified asthma, uncomplicated; E66.01 Morbid (severe) obesity due to excess calories; F31.9 Bipolar disorder, unspecified; M54.9 Dorsalgia, unspecified; G89.29 Other chronic pain; Z90.49 Acquired absence of other specified parts of digestive tract; Z90.89 Acquired absence of other organs; Z88.8 Allergy status to other drugs, medicaments and biological substances; Z68.43 Body mass index [BMI] 50.0-59.9, adult; W10.9XXA Fall (on) (from) unspecified stairs and steps, initial encounter; Y92.89 Other specified places as the place of occurrence of the external cause; Y99.0 Civilian activity done for income or pay; Y99.8 Other external cause status

== ENCOUNTER 2018-07-11 22:24 | Emergency (ER) | payer MEDICARE, MEDICAID ==
[~2018-07-11] VITALS: Ht 162.6 cm; Wt 145.2 kg
[2018-07-11 22:40] VITALS: BP 154/79
== END 2018-07-11 22:40 | disposition home or self-care (01) ==
LOC: M.ERS 22:24
DX: Z48.01 Encounter for change or removal of surgical wound dressing (principal)

== ENCOUNTER 2018-07-18 00:50 | Emergency (ER) | payer MEDICARE, MEDICAID ==
[~2018-07-18] VITALS: Ht 162.6 cm; Wt 145.2 kg
[2018-07-18 01:18] LABS: ABSOLUTE BASOPHILS 0.1 thou/uL (0.0-0.2); ABSOLUTE EOSINOPHILS 0.5 thou/uL (0.0-0.7); ABSOLUTE LYMPHOCYTES 1.9 thou/uL (0.8-5.3); ABSOLUTE MONOCYTES 0.9 thou/uL (0.0-1.2); ABSOLUTE NEUTROPHILS 12.7 thou/uL (1.6-8.1); BASOPHILS 0.7 %; EOSINOPHILS 2.9 %; HEMATOCRIT 35.9 % (37.0-47.0); HEMOGLOBIN 11.2 gm/dL (12.0-15.0); LYMPHOCYTES 11.8 %; MCH 26.7 pg (26.0-34.0); MCHC 31.2 g/dL (28.0-37.0); MCV 85.7 fL (80.0-100.0); MONOCYTES 5.6 %; MPV 7.1 fl. (7.2-11.1); NUCLEATED RBCS 0 /100WBC; PLATELET COUNT* 349 thou/uL (150-400); RBC 4.19 mil/uL (4.20-5.00); RDW-CV 15.7 % (10.5-14.5); WBC 16.1 thou/uL (4.0-11.0)
[2018-07-18 01:23] LABS: ANION GAP 9 mmol/L (7-16); BUN 11 mg/dL (7-18); CALCIUM 8.8 mg/dL (8.5-10.1); CHLORIDE 102 mmol/L (98-107); CO2 29 mmol/L (21-32); CREATININE 0.8 mg/dL (0.6-1.3); GLUCOSE 103 mg/dL (70-99); POTASSIUM 3.5 mmol/L (3.5-5.1); SODIUM 140 mmol/L (136-145)
[2018-07-18 01:33] LABS: ALBUMIN 3.2 g/dL (3.4-5.0); ALKALINE PHOSPHATASE 73 U/L (46-116); LIPASE 97 U/L (73-393); MAGNESIUM 1.7 mg/dL (1.8-2.4); NT-PRO BRAIN NAT PEPTIDE 36 pg/mL (<300); SGOT 9 U/L (15-37); SGPT 22 U/L (30-65); TOTAL BILIRUBIN 0.3 mg/dL (<0.1-1.0); TOTAL PROTEIN 7.3 g/dL (6.4-8.2); TROPONIN-I LEVEL <0.06 ng/mL (<0.06)
[2018-07-18 04:11] VITALS: BP 104/84
--- NOTE | 2018-07-19 14:27 | EKG ---
[place] [address] ELECTROCARDIOGRAM REPORT Name: SALAS KELLY Room: [facility]#: [id number] Admission: 07/18/18 Attend Phys: Discharge: 07/18/18 Date of : [birth year] Report #: [id number] THIS REPORT FOR: //name// [facility] ED Test Date: 2018-07-18 Test Time: 00:55:17 Pat Name: SALAS KELLY Department: Room: Gender: F Pot Reliner: EMETERIO : 1990 Requested By: Bacilio Ferreira Order Number: [id number] MD: Ha Cast Measurements Intervals [place] Rate: 117 P: 58 MN: 138 QRS: 26 QRSD: 84 T: 9 QT: 336 QTc: 469 Interpretive Statements Sinus tachycardia Compared to ECG 05/29/2018 22:32:49 No significant changes Electronically Signed On 07-19-2018 14:27:16 CDT by Ha Cast [email or web address] <ELECTRONICALLY SIGNED> By: Ha Cast MD, [facility] 07/19/18 1427 0055 0055 Ha Cast MD, FAC /EPI
== END 2018-07-18 04:11 | disposition home or self-care (01) ==
LOC: M.ERS 00:50
PROVIDERS: Emergency Medicine Emergency Medical Services
DX: R07.89 Other chest pain (principal); J45.50 Severe persistent asthma, uncomplicated; E66.01 Morbid (severe) obesity due to excess calories; Z68.43 Body mass index [BMI] 50.0-59.9, adult; F31.9 Bipolar disorder, unspecified; F41.9 Anxiety disorder, unspecified; M54.9 Dorsalgia, unspecified; G89.29 Other chronic pain; Z90.49 Acquired absence of other specified parts of digestive tract; F17.210 Nicotine dependence, cigarettes, uncomplicated; Z88.8 Allergy status to other drugs, medicaments and biological substances

== ENCOUNTER 2018-07-19 23:57 | Emergency (ER) | payer MEDICARE, MEDICAID ==
[~2018-07-19] VITALS: Ht 162.6 cm; Wt 145.2 kg
[2018-07-20 01:20] VITALS: BP 124/76
--- NOTE | 2018-07-20 11:28 | EKG ---
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 : 1990 Requested By: Angeli Robertson Order Number: [id number] MD: Kevin Lorenzo Measurements Intervals [place] Rate: 126 P: 48 [place]: 137 QRS: 22 QRSD: 92 T: 17 QT: 315 QTc: 457 Interpretive Statements Sinus tachycardia Low voltage, precordial leads Baseline wander in lead(s) II,III,aVR,aVL,aVF Compared to ECG 07/18/2018 00:55:17 Low QRS voltage now present Electronically Signed On 07-20-2018 11:27:55 CDT by Kevin Lorenzo [email or web address] <ELECTRONICALLY SIGNED> By: Kevin Lorenzo MD, [facility] 07/20/18 1127 0016 0016 Kevin Lorenzo MD, [facility] /EPI
== END 2018-07-20 01:20 | disposition home or self-care (01) ==
LOC: M.ERS 23:57
DX: J98.01 Acute bronchospasm (principal); E66.01 Morbid (severe) obesity due to excess calories; Z68.43 Body mass index [BMI] 50.0-59.9, adult; F31.9 Bipolar disorder, unspecified; F41.9 Anxiety disorder, unspecified; M54.9 Dorsalgia, unspecified; G89.29 Other chronic pain; F17.210 Nicotine dependence, cigarettes, uncomplicated; Z88.8 Allergy status to other drugs, medicaments and biological substances

== ENCOUNTER 2018-08-08 22:04 | Emergency (ER) | payer MEDICARE, MEDICAID ==
[~2018-08-08] VITALS: Ht 162.6 cm; Wt 141.1 kg
[2018-08-09 01:44] VITALS: BP 127/76
--- NOTE | 2018-08-09 11:29 | EKG ---
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 <ELECTRONICALLY SIGNED> By: Ha Cast MD, [facility]ACC 08/09/18 1129 09 221 Ha Cast MD, FAC /EPI
== END 2018-08-09 01:46 | disposition home or self-care (01) ==
LOC: M.ERS 22:04
DX: J45.909 Unspecified asthma, uncomplicated (principal); F17.210 Nicotine dependence, cigarettes, uncomplicated; E66.01 Morbid (severe) obesity due to excess calories; F31.9 Bipolar disorder, unspecified; F41.9 Anxiety disorder, unspecified; M54.9 Dorsalgia, unspecified; G89.29 Other chronic pain; Z88.8 Allergy status to other drugs, medicaments and biological substances; Z68.43 Body mass index [BMI] 50.0-59.9, adult; Z90.49 Acquired absence of other specified parts of digestive tract; Z90.89 Acquired absence of other organs

== ENCOUNTER 2018-08-14 22:38 | Emergency (ER) | payer MEDICARE, MEDICAID ==
[~2018-08-14] VITALS: Ht 162.6 cm; Wt 141.1 kg
[2018-08-14 23:11] LABS: URINE BILIRUBIN NEGATIVE (Negative); URINE BLOOD NEGATIVE (Negative); URINE CLARITY CLEAR; URINE COLOR YELLOW; URINE GLUCOSE-RANDOM NEGATIVE (Negative); URINE KETONES NEGATIVE (Negative); URINE LEUKOCYTES-REFLEX NEGATIVE (Negative); URINE NITRITE-REFLEX NEGATIVE (Negative); URINE PROTEIN NEGATIVE (Negative); URINE SPECIFIC GRAVITY 1.015 (1.005-1.030); URINE UROBILINOGEN 0.2 E.U./dl (0.2-1.0)
[2018-08-14 23:16] LABS: ABSOLUTE BASOPHILS 0.2 thou/uL (0.0-0.2); ABSOLUTE EOSINOPHILS 0.3 thou/uL (0.0-0.7); ABSOLUTE LYMPHOCYTES 2.6 thou/uL (0.8-5.3); ABSOLUTE MONOCYTES 1.1 thou/uL (0.0-1.2); ABSOLUTE NEUTROPHILS 11.8 thou/uL (1.6-8.1); EOSINOPHILS 1.7 %; HEMATOCRIT 36.9 % (37.0-47.0); LYMPHOCYTES 16.4 %; MCH 27.8 pg (26.0-34.0); MCHC 32.5 g/dL (28.0-37.0); MCV 85.6 fL (80.0-100.0); MONOCYTES 6.8 %; MPV 7.1 fl. (7.2-11.1); NUCLEATED RBCS 0 /100WBC; PLATELET COUNT* 318 thou/uL (150-400); POLYS 74.1 %; RBC 4.31 mil/uL (4.20-5.00); RDW-CV 16.3 % (10.5-14.5); WBC 15.9 thou/uL (4.0-11.0)
[2018-08-14 23:20] LABS: CALCIUM 8.8 mg/dL (8.5-10.1); CREATININE 0.7 mg/dL (0.6-1.3); POTASSIUM 3.8 mmol/L (3.5-5.1)
[2018-08-14] MEDS ORDERED: ZOFRAN ODT4 MG PO (23:23)
[2018-08-14 23:24] LABS: ALBUMIN 3.1 g/dL (3.4-5.0); TOTAL BILIRUBIN 0.2 mg/dL (<0.1-1.0); TOTAL PROTEIN 7.1 g/dL (6.4-8.2)
[2018-08-14 23:27] LABS: AMP/METHAMP Negative (Negative); BARBITURATES Negative (Negative); BENZODIAZEPINES Negative (Negative); COCAINE Negative (Negative); METHADONE Negative (Negative); OPIATES Negative (Negative); PCP Negative (Negative); THC Negative (Negative)
[2018-08-14 23:42] VITALS: BP 154/79
== END 2018-08-14 23:42 | disposition home or self-care (01) ==
LOC: M.ERS 22:38
PROVIDERS: Physician Assistant
DX: R11.2 Nausea with vomiting, unspecified (principal); R10.11 Right upper quadrant pain; F17.210 Nicotine dependence, cigarettes, uncomplicated; J45.909 Unspecified asthma, uncomplicated; F31.9 Bipolar disorder, unspecified; F41.9 Anxiety disorder, unspecified; M54.9 Dorsalgia, unspecified; G89.29 Other chronic pain; Z90.49 Acquired absence of other specified parts of digestive tract; Z90.89 Acquired absence of other organs; Z88.8 Allergy status to other drugs, medicaments and biological substances

== ENCOUNTER 2018-08-17 19:49 | Emergency (ER) | payer MEDICARE, MEDICAID ==
[~2018-08-17] VITALS: Ht 162.6 cm; Wt 142.9 kg
[~2018-08-17 19:49] MED LIST changes: +ZOFRAN ODT4 MG PO
[2018-08-17 20:14] LABS: ABSOLUTE BASOPHILS 0.2 thou/uL (0.0-0.2); ABSOLUTE EOSINOPHILS 0.2 thou/uL (0.0-0.7); ABSOLUTE LYMPHOCYTES 1.7 thou/uL (0.8-5.3); ABSOLUTE NEUTROPHILS 11.1 thou/uL (1.6-8.1); BASOPHILS 1.1 %; EOSINOPHILS 1.3 %; HEMATOCRIT 36.9 % (37.0-47.0); HEMOGLOBIN 11.7 gm/dL (12.0-15.0); LYMPHOCYTES 12.2 %; MCH 27.3 pg (26.0-34.0); MCHC 31.8 g/dL (28.0-37.0); MCV 85.8 fL (80.0-100.0); MONOCYTES 7.1 %; MPV 7.1 fl. (7.2-11.1); NUCLEATED RBCS 0 /100WBC; PLATELET COUNT* 330 thou/uL (150-400); POLYS 78.3 %; RDW-CV 16.7 % (10.5-14.5); WBC 14.2 thou/uL (4.0-11.0)
[2018-08-17 20:21] LABS: CALCIUM 8.8 mg/dL (8.5-10.1); CREATININE 0.6 mg/dL (0.6-1.3); POTASSIUM 3.8 mmol/L (3.5-5.1)
[2018-08-17 20:25] LABS: ALBUMIN 3.2 g/dL (3.4-5.0); TOTAL BILIRUBIN 0.3 mg/dL (<0.1-1.0); TOTAL PROTEIN 7.2 g/dL (6.4-8.2)
[2018-08-17] MEDS ORDERED: PREDNISONE 20 M20 MG PO (21:30)
[2018-08-17 21:56] VITALS: BP 118/80
[2018-08-25] MEDS ORDERED: DOXYCYCLINE 10100 MG PO (19:01)
[2018-08-25] MEDS ORDERED: PREDNISONE 10 M10 MG PO (19:02)
== END 2018-08-17 21:57 | disposition home or self-care (01) ==
LOC: M.ERS 19:49
PROVIDERS: Physician Assistant
DX: J45.901 Unspecified asthma with (acute) exacerbation (principal); F31.9 Bipolar disorder, unspecified; F41.9 Anxiety disorder, unspecified; E66.01 Morbid (severe) obesity due to excess calories; G89.29 Other chronic pain; M54.9 Dorsalgia, unspecified; Z68.43 Body mass index [BMI] 50.0-59.9, adult; F17.210 Nicotine dependence, cigarettes, uncomplicated; Z88.8 Allergy status to other drugs, medicaments and biological substances

== ENCOUNTER 2018-09-18 11:41 | Emergency (ER) | payer MEDICARE, MEDICAID ==
[~2018-09-18] VITALS: Ht 162.6 cm; Wt 154.2 kg
[2018-09-18] MEDS ORDERED: IBUPROFEN 800800 M1 PO (12:38)
[2018-09-18] MEDS ORDERED: KNEE STABILIZE1 EACH MISCELL ×2 (12:40→12:41)
[2018-09-18 12:57] VITALS: BP 136/74
== END 2018-09-18 12:58 | disposition home or self-care (01) ==
LOC: M.ERS 11:41
DX: S80.01XA Contusion of right knee, initial encounter (principal); S70.11XA Contusion of right thigh, initial encounter; J45.909 Unspecified asthma, uncomplicated; E66.01 Morbid (severe) obesity due to excess calories; F31.9 Bipolar disorder, unspecified; F41.9 Anxiety disorder, unspecified; M54.9 Dorsalgia, unspecified; G89.29 Other chronic pain; F17.210 Nicotine dependence, cigarettes, uncomplicated; Z68.43 Body mass index [BMI] 50.0-59.9, adult; Z90.49 Acquired absence of other specified parts of digestive tract; Z88.8 Allergy status to other drugs, medicaments and biological substances; X50.1XXA Overexertion from prolonged static or awkward postures, initial encounter; Y93.89 Activity, other specified; Y92.89 Other specified places as the place of occurrence of the external cause; Y99.8 Other external cause status

== ENCOUNTER 2018-09-21 19:02 | Emergency (ER) | payer MEDICARE, MEDICAID ==
[~2018-09-21] VITALS: Ht 167.6 cm; Wt 145.2 kg
[~2018-09-21 19:02] MED LIST changes: +KNEE STABILIZE1 EACH MISCELL
[2018-09-21] MEDS ORDERED: TUCKS1 EAC1 TOP (19:48)
[2018-09-21 20:00] VITALS: BP 120/72
== END 2018-09-21 20:01 | disposition home or self-care (01) ==
LOC: M.ERS 19:02
DX: R23.4 Changes in skin texture (principal); J45.909 Unspecified asthma, uncomplicated; E66.01 Morbid (severe) obesity due to excess calories; F31.9 Bipolar disorder, unspecified; F41.9 Anxiety disorder, unspecified; M54.9 Dorsalgia, unspecified; G89.29 Other chronic pain; F17.210 Nicotine dependence, cigarettes, uncomplicated; Z68.43 Body mass index [BMI] 50.0-59.9, adult; Z90.49 Acquired absence of other specified parts of digestive tract; Z90.89 Acquired absence of other organs; Z88.8 Allergy status to other drugs, medicaments and biological substances

== ENCOUNTER 2018-10-14 23:44 | Inpatient (IN) | payer MEDICARE, MEDICAID ==
[~2018-10-14] VITALS: Ht 162.6 cm; Wt 144.2 kg
[~2018-10-14 23:44] MED LIST changes: +TUCKS1 EAC1 TOP
[2018-10-14 23:46] VITALS: BP 142/79
[2018-10-15 04:01] LABS: HEMATOCRIT 35.9 % (37.0-47.0); HEMOGLOBIN 11.1 gm/dL (12.0-15.0); MCH 26.4 pg (26.0-34.0); MCHC 30.9 g/dL (28.0-37.0); MCV 85.6 fL (80.0-100.0); MPV 7.2 fl. (7.2-11.1); NUCLEATED RBCS 0 /100WBC; PLATELET COUNT* 304 thou/uL (150-400); RBC 4.19 mil/uL (4.20-5.00); RDW-CV 16.8 % (10.5-14.5); WBC 16.1 thou/uL (4.0-11.0)
[2018-10-15 04:17] LABS: CREATININE 0.6 mg/dL (0.6-1.3)
[2018-10-15 05:15] VITALS: BP 120/72
[2018-10-15 06:09] VITALS: BP 109/70
[2018-10-15 06:43] LABS: ABSOLUTE BASOPHILS 0.2 thou/uL (0.0-0.2); ABSOLUTE LYMPHOCYTES 1.3 thou/uL (0.8-5.3); ABSOLUTE MONOCYTES 0.2 thou/uL (0.0-1.2); ABSOLUTE NEUTROPHILS 14.5 thou/uL (1.6-8.1); PLATELET ESTIMATE ADEQUATE
[2018-10-15 06:44] LABS: HYPOCHROMASIA 1+; MICROCYTES 1+
[2018-10-15 07:40] VITALS: BP 137/86
[2018-10-15 09:10] VITALS: BP 137/86
[2018-10-15] MEDS ORDERED: PREDNISONE 10 M10 MG PO (09:54)
[2018-10-15 10:15] VITALS: BP 137/86
[2018-10-15 10:53] VITALS: BP 137/86
--- NOTE | 2018-10-17 14:43 | EKG ---
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
== END 2018-10-15 10:53 | disposition home or self-care (01) | DRG 189 ==
LOC: M.ERS 23:44 → M.ORTHSURG 10-15 03:45 → M.TBA-ER 10-15 03:45 → M.ORTHSURG 10-15 05:23
PROVIDERS: Emergency Medicine; ADMIT Internal Medicine
DX: J96.01 Acute respiratory failure with hypoxia (principal); J45.41 Moderate persistent asthma with (acute) exacerbation; Z68.43 Body mass index [BMI] 50.0-59.9, adult; F31.9 Bipolar disorder, unspecified; G89.29 Other chronic pain; M54.9 Dorsalgia, unspecified; E66.01 Morbid (severe) obesity due to excess calories; F41.9 Anxiety disorder, unspecified; Z90.49 Acquired absence of other specified parts of digestive tract; Z88.8 Allergy status to other drugs, medicaments and biological substances

== ENCOUNTER 2019-03-10 23:29 | Emergency (ER) | payer MEDICARE, MEDICAID ==
[~2019-03-10] VITALS: Ht 162.6 cm; Wt 141.5 kg
[2019-03-11 00:05] LABS: HEMATOCRIT 34.3 % (37.0-47.0); HEMOGLOBIN 11.2 gm/dL (12.0-15.0); MCH 27.6 pg (26.0-34.0); MCHC 32.6 g/dL (28.0-37.0); MCV 84.8 fL (80.0-100.0); RBC 4.04 mil/uL (4.20-5.00); RDW-CV 16.7 % (10.5-14.5); WBC 9.4 thou/uL (4.0-11.0)
[2019-03-11 00:44] LABS: URINE BILIRUBIN NEGATIVE (Negative); URINE BLOOD NEGATIVE (Negative); URINE CLARITY CLEAR; URINE COLOR ORANGE; URINE GLUCOSE-RANDOM NEGATIVE (Negative); URINE KETONES NEGATIVE (Negative); URINE LEUKOCYTES-REFLEX NEGATIVE (Negative); URINE NITRITE-REFLEX NEGATIVE (Negative); URINE PROTEIN NEGATIVE (Negative); URINE UROBILINOGEN 0.2 E.U./dl (0.2-1.0)
[2019-03-11 00:45] LABS: AMP/METHAMP Negative (Negative); BARBITURATES Negative (Negative); BENZODIAZEPINES Negative (Negative); COCAINE Negative (Negative); METHADONE Negative (Negative); OPIATES Negative (Negative); PCP Negative (Negative); THC Negative (Negative)
[2019-03-11] MEDS ORDERED: CYCLOBENZAPRINE5 MG PO (00:51)
[2019-03-11] MEDS ORDERED: MELOXICAM15 MG PO (00:51)
[2019-03-11 01:15] VITALS: BP 142/74
--- NOTE | 2019-03-11 10:34 | EKG ---
[place] [address] ELECTROCARDIOGRAM REPORT Name: SALAS KELLY Room: [facility]#: [id number] Admission: 03/10/19 Attend Phys: Discharge: 03/11/19 Date of : [birth year] Report #: [id number] THIS REPORT FOR: //name// [facility] ED Test Date: 2019-03-10 Test Time: 23:41:08 Pat Name: SALAS KELLY Department: Room: Gender: F Superintendent Radio Communications: [place] : 1990 Requested By: Angeli Robertson Order Number: [id number] MD: Rhett Lau Measurements Intervals [place] Rate: 118 P: 60 PA: 143 QRS: 21 QRSD: 81 T: 14 QT: 323 QTc: 453 Interpretive Statements Sinus tachycardia Low voltage, precordial leads Compared to ECG 10/14/2018 23:51:14 Low QRS voltage now present Electronically Signed On 03-11-2019 10:33:57 DRAIN TILE MACHINE OPERATOR by Rhett Lau [email or web address] <ELECTRONICALLY SIGNED> By: Rhett Lau MD, [facility] 03/11/19 1033 40 40 Rhett Lau MD, FAC /EPI
== END 2019-03-11 01:15 | disposition home or self-care (01) ==
LOC: M.ERS 23:29
PROVIDERS: Personal Emergency Response Attendant
DX: M25.511 Pain in right shoulder (principal); R06.2 Wheezing; G89.29 Other chronic pain; M54.9 Dorsalgia, unspecified; F32.9 Major depressive disorder, single episode, unspecified; F17.210 Nicotine dependence, cigarettes, uncomplicated; Z90.89 Acquired absence of other organs; Z90.49 Acquired absence of other specified parts of digestive tract; Z88.8 Allergy status to other drugs, medicaments and biological substances

== ENCOUNTER 2019-05-05 01:08 | Emergency (ER) | payer MEDICARE, MEDICAID ==
[~2019-05-05] VITALS: Ht 167.6 cm; Wt 146.5 kg
[~2019-05-05 01:08] MED LIST changes: +CYCLOBENZAPRINE5 MG PO; +MELOXICAM15 MG PO
[2019-05-05 02:41] VITALS: BP 123/82
--- NOTE | 2019-05-05 16:46 | EKG ---
[place] [address] ELECTROCARDIOGRAM REPORT Name: SALAS KELLY Room: [facility]#: [id number] Admission: 05/05/19 Attend Phys: Discharge: 05/05/19 Date of : [birth year] Date of Service: 05/05/19 0113 Report #: [id number] THIS REPORT FOR: //name// 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: AFSANEH : 1990 Requested By: Angeli Robertson Order Number: [id number] MD: Rhett Lau Measurements Intervals [place] Rate: 112 P: 49 WV: 146 QRS: 11 QRSD: 94 T: 7 QT: 368 QTc: 503 Interpretive Statements Sinus tachycardia Low voltage, precordial leads Prolonged QT interval Artifact in lead(s) II,III,aVR,aVL,aVF Compared to ECG 03/10/2019 23:41:08 Prolonged QT interval now present Electronically Signed On 05-05-2019 16:45:32 CDT by Rhett Lau [email or web address] <ELECTRONICALLY SIGNED> By: Rhett Lau MD, FACC 05/05/19 1645 0113 0113 Rhett Lau MD, FAC /EPI
== END 2019-05-05 02:41 | disposition home or self-care (01) ==
LOC: M.ERS 01:08
DX: G43.909 Migraine, unspecified, not intractable, without status migrainosus (principal); R07.89 Other chest pain; G89.29 Other chronic pain; F41.9 Anxiety disorder, unspecified; J45.909 Unspecified asthma, uncomplicated; F31.9 Bipolar disorder, unspecified; E66.01 Morbid (severe) obesity due to excess calories; Z68.43 Body mass index [BMI] 50.0-59.9, adult; Z90.49 Acquired absence of other specified parts of digestive tract; Z88.6 Allergy status to analgesic agent; Z88.8 Allergy status to other drugs, medicaments and biological substances

== ENCOUNTER 2020-04-28 00:18 | Emergency (ER) | payer OTHER, MEDICAID ==
[~2020-04-28] VITALS: Ht 165.1 cm; Wt 147.4 kg
--- NOTE | ~2020-04-28 | EMS ---
[facility] [address] [facility] [place] [address] EMS Patient Care Report Name: SALAS KELLY [facility] [id number] Admission: 04/28/20 Attend Phys: Discharge: 04/28/20 Date of : [birth year] Report #: [id number] THIS REPORT FOR: //name// Report Transmitted: 04/29/2020 13:57 EMS Care Summary [facility] Incident [id number] @ 04/27/2020 23:34 Incident Location [address] [place] [id number] Patient SALAS KELLY Female, 29 Years 1990 Patient Address [address] [place] [address] Patient History Bipolar II Disorder,Depression,Anxiety, Patient Allergies Ibuprofen,Compazine, Patient Medications Zoloft, Abilify, Lamotrigine, Singulair, Lasix, Chief Complaint Fall Disposition Transported No Lights/[place] Dispatch Reason Falls Transported To [facility] Narrative Med 1 and Engine 1 were dispatched for a [age] year-old female c/o knee and ankle pain. Upon arrival, the patient is out by a fire pit accompanied by friends and she is sitting on the ground holding her bag ready for EMS. [facility] [address] [facility] [place] [address] EMS Patient Care Report Name: SALAS KELLY Room: [facility]#: [id number] Admission: 04/28/20 Attend Phys: Discharge: 04/28/20 Date of : [birth year] Report #: [id number] Patient reports that she was walking out by the fire pit and slipped on some mud and heard a pop. In her ankle or knee. There were no obvious deformities, bruising or swelling. Patient was lifted onto the stretcher and secured via seatbelts and moved to the ambulance without incident. In the ambulance, patients vitals were obtained. Med 1 went en route to [facility]. Patient reported that she had been to [place] earlier in the day for another complaint. Patient had been in trouble with [facility] for abuse of the 911 system but has not called recently until now. Patient requested pain medications but her vitals were within normal range and she did not act like she was in any pain. Hospital report was given via radio and no questions or orders were received or requested. Med 1 arrived at the hospital. Patient was moved into the ER via stretcher without incident to room 2. Patient care was transferred to ER staff. Med 1 returned back into service. [facility] [id number] Initial Vitals @23:57P: 112,R: 20,BP: 124/78,Pain: 4/10,GCS: 15,SpO2: 98,Revised Trauma: 12, @00:10P: 106,R: 20,BP: 124/74,Pain: 10/10,GCS: 15,SpO2: 98,Revised Trauma: 12, Assessments @23:51MENTAL:No Abnormalities,SKIN:No Abnormalities,HEENT:Head/Face: No Abnormalities,Eyes: No Abnormalities,Neck/Airway: No Abnormalities,LUNG SOUNDS:General: No Abnormalities,Left Upper: No Abnormalities,Right Upper: No Abnormalities,Left Lower: No Abnormalities,Right Lower: No Abnormalities,ABDOMEN:General: No Abnormalities,Left Upper: No Abnormalities,Right Upper: No Abnormalities,Left Lower: No Abnormalities,Right Lower: No Abnormalities,PELVIS//GI:EXTREMITIES:Right Leg: Weakness,Right Leg: Other,Left Arm: No Abnormalities,Right Arm: No Abnormalities,Left Leg: No Abnormalities,PULSE:NEURO: Impression Injury of Ankle Procedures @23:40BLS AssessmentResponse: Unchanged Timeline 23:34,Call Received 23:34,[place] [address] EMS Patient Care Report Name: LETICIASALAS ANN [facility] [id number] Admission: 04/28/20 Attend Phys: Discharge: 04/28/20 Date of : [birth year] Report #: [id number] 23:36,En Route 23:39,On Scene 23:40,At Patient 23:40,BLS Assessment,Response: Unchanged 23:50,Depart Scene 23:57,BP: 124/78 M,PULSE: 112,RR: 20 R,SPO2: 98 Ox,ETCO2: ,BG: ,PAIN: 4,GCS: 15, 00:10,BP: 124/74 M,PULSE: 106,RR: 20 R,SPO2: 98 Ox,ETCO2: ,BG: ,PAIN: 10,GCS: 15, 00:14,At Destination 00:44,Call Closed 00:44,In District Disclaimer v1.1 Copyright 2020 [employer] This EMS Care Summary contains data elements from the applicable legal record (which may be displayed differently). It is designed to provide pertinent information for the following purposes: continuity of care, clinical quality, and state data reporting. The complete legal record is available to ED staff and administrators of the receiving hospital in [employer]'s Patient Tracker. All data is provided "as is."
--- NOTE | ~2020-04-28 | EMS ---
[facility] [address] [facility] [place] [address] EMS Patient Care Report Name: SALAS KELLY [facility] [id number] Admission: 04/28/20 Attend Phys: Discharge: 04/28/20 Date of : [birth year] Report #: [id number] THIS REPORT FOR: //name// Report Transmitted: 04/28/2020 06:35 EMS Care Summary [facility] [facility] Incident [id number] @ 04/27/2020 23:34 Incident Location [address] [place] [id number] Patient SALAS KELLY Female, 29 Years 1990 Patient Address [address] [place], [place] [id number] Patient History Bipolar II Disorder,Depression,Anxiety, Patient Allergies Ibuprofen,Compazine, Patient Medications Zoloft, Abilify, Lamotrigine, Singulair, Lasix, Chief Complaint Fall Disposition Transported No Lights/[place] Dispatch Reason Falls Transported To [facility] Narrative Med 1 and Engine 1 were dispatched for a [age] year-old female c/o knee and ankle pain. Upon arrival, the patient is out by a fire pit accompanied by friends and she is sitting on the ground holding her bag ready for EMS. [facility] [address] [place] [address] EMS Patient Care Report Name: SALAS KELLY Room: [facility]#: [id number] Admission: 04/28/20 Attend Phys: Discharge: 04/28/20 Date of : [birth year] Report #: [id number] Patient reports that she was walking out by the fire pit and slipped on some mud and heard a pop. In her ankle or knee. There were no obvious deformities, Initial Vitals @23:57P: 112,R: 20,BP: 124/78,Pain: 4/10,GCS: 15,SpO2: 98,Revised Trauma: 12, @00:10P: 106,R: 20,BP: 124/74,Pain: 10/10,GCS: 15,SpO2: 98,Revised Trauma: 12, Assessments @23:51MENTAL:No Abnormalities,SKIN:No Abnormalities,HEENT:Head/Face: No Abnormalities,Eyes: No Abnormalities,Neck/Airway: No Abnormalities,LUNG SOUNDS:General: No Abnormalities,Left Upper: No Abnormalities,Right Upper: No Abnormalities,Left Lower: No Abnormalities,Right Lower: No Abnormalities,ABDOMEN:General: No Abnormalities,Left Upper: No Abnormalities,Right Upper: No Abnormalities,Left Lower: No Abnormalities,Right Lower: No Abnormalities,PELVIS//GI:EXTREMITIES:Right Leg: Weakness,Right Leg: Other,Left Arm: No Abnormalities,Right Arm: No Abnormalities,Left Leg: No Abnormalities,PULSE:NEURO: Impression Injury of Ankle Procedures @23:40BLS AssessmentResponse: Unchanged Timeline 23:34,Call Received 23:34,Dispatched 23:36,En Route 23:39,On Scene 23:40,At Patient 23:40,BLS Assessment,Response: Unchanged 23:50,Depart Scene 23:57,BP: 124/78 M,PULSE: 112,RR: 20 R,SPO2: 98 Ox,ETCO2: ,BG: ,PAIN: 4,GCS: 15, 00:10,BP: 124/74 M,PULSE: 106,RR: 20 R,SPO2: 98 Ox,ETCO2: ,BG: ,PAIN: 10,GCS: 15, 00:14,At Destination 00:44,Call Closed 00:44,In District Disclaimer v1.1 Copyright 2020 [employer] This EMS Care Summary contains data elements from the applicable legal record (which may be displayed differently). It is designed to provide pertinent information for the following purposes: continuity of care, clinical quality, and state data reporting. The complete legal [place] [address] EMS Patient Care Report Name: SALAS KELLY [id number] Admission: 04/28/20 Attend Phys: Discharge: 04/28/20 Date of : [birth year] Report #: [id number] and administrators of the receiving hospital in [employer] [facility]'s Patient Tracker. All data is provided "as is."
[2020-04-28 02:53] VITALS: BP 127/76
== END 2020-04-28 02:55 | disposition home or self-care (01) ==
LOC: M.ERS 00:18
DX: S93.491A Sprain of other ligament of right ankle, initial encounter (principal); S83.8X1A Sprain of other specified parts of right knee, initial encounter; G89.29 Other chronic pain; J45.909 Unspecified asthma, uncomplicated; E66.01 Morbid (severe) obesity due to excess calories; F17.210 Nicotine dependence, cigarettes, uncomplicated; Z68.43 Body mass index [BMI] 50.0-59.9, adult; Z88.6 Allergy status to analgesic agent; Z88.8 Allergy status to other drugs, medicaments and biological substances; W01.0XXA Fall on same level from slipping, tripping and stumbling without subsequent striking against object, initial encounter; Y93.89 Activity, other specified; Y92.89 Other specified places as the place of occurrence of the external cause; Y99.8 Other external cause status